=== PATIENT | female | born 1970 | race Caucasian/White ===

== ENCOUNTER 2016-10-02 13:22 | Outpatient (CLI) | payer MEDICAID | END 2016-10-02 13:23 | disposition home or self-care (01) | DX: R19.09 Other intra-abdominal and pelvic swelling, mass and lump (principal); C81.90 Hodgkin lymphoma, unspecified, unspecified site; Z97.5 Presence of (intrauterine) contraceptive device ==

== ENCOUNTER 2016-10-10 13:55 | Outpatient (CLI) | payer MEDICAID ==
[2016-10-10] MEDS ORDERED: BUFFERED LIDOCAINE 10 ML SYRINGE IU ONE (15:09)
== END 2016-10-10 13:56 | disposition home or self-care (01) ==
DX: R22.1 Localized swelling, mass and lump, neck (principal); R63.4 Abnormal weight loss

== ENCOUNTER 2016-10-29 07:54 | Day surgery (SDC) | payer MEDICAID ==
[~2016-10-29 07:54] MED LIST: ceFAZolin 2 GM/50 ML 50 ML IV ONE
[2016-10-29] MEDS ORDERED: LACTATED RINGERS 1,000 ML IV ONE (07:59)
[2016-10-29] MEDS ORDERED: fentaNYL 100 MCG/2 ML VIAL IVP ONE (10:00)
[2016-10-29] MEDS ORDERED: PROPOFOL 200 MG/20 ML VIAL IVP ONE (10:00)
[2016-10-29] MEDS ORDERED: ONDANSETRON 4 MG/2 ML VIAL IVP ONE (10:00)
[2016-10-29] MEDS ORDERED: MIDAZOLAM 2 MG/2 ML VIAL IVP ONE (10:00)
[2016-10-29] MEDS ORDERED: LIDOCAINE-MPF 2% 5 ML VIAL IM ONE (10:00)
[2016-10-29] MEDS ORDERED: BUPIVACAINE 0.5% PF 30 ML VIAL INFIL ONE ×2 (10:09)
[2016-10-29] MEDS ORDERED: oxyCOD/ACETAMIN 5 MG/325 MG TABLET PO ONE (11:20)
== END 2016-10-29 07:55 | disposition home or self-care (01) ==
DX: R59.0 Localized enlarged lymph nodes (principal); Z85.72 Personal history of non-Hodgkin lymphomas; Z87.891 Personal history of nicotine dependence; F41.8 Other specified anxiety disorders
CPT/HCPCS: 38510; 81025; 87640; A9270; J0690; J7120

== ENCOUNTER 2017-08-25 09:42 | Outpatient (CLI) | payer MEDICAID ==
[2017-08-25 12:29] LABS: BASOPHILS % (AUTO) 0.5 %; EOSINOPHILS # (AUTO) 0.1 10^3/uL (0.0-0.7); EOSINOPHILS % (AUTO) 2.2 %; HCT - HEMATOCRIT 39.8 % (37.0-47.0); HGB - HEMOGLOBIN 13.4 g/dL (12.0-16.0); LYMPHOCYTES % (AUTO) 43.4 %; MEAN CORPUSCULAR HEMOGLOBIN 29.1 pg (27.0-31.0); MEAN CORPUSCULAR HGB CONC 33.6 g/dL (32.0-36.0); MEAN CORPUSCULAR VOLUME 86.7 fL (81.0-99.0); MONOCYTES # (AUTO) 0.4 10^3/uL (0.0-1.0); NEUTROPHILS % (AUTO) 44.9 %; NUCLEATED RED BLOOD CELLS AUTO 0.1 /100WBC; RED BLOOD COUNT 4.59 10^6/uL (4.20-5.40); RED CELL DISTRIBUTION WIDTH 12.5 % (12.0-15.0); UNCORRECTED WHITE BLOOD COUNT 4.6 x10^3/uL; WHITE BLOOD COUNT 4.6 x10^3/uL (4.8-10.8)
[2017-08-25 12:44] LABS: BILIRUBIN,TOTAL 0.6 mg/dL (0.2-1.0); BUN - BLOOD UREA NITROGEN 16 mg/dL (6-20); CALCIUM 8.6 mg/dL (8.5-10.3); CARBON DIOXIDE - CO2 23 mmol/L (21-32); CHLORIDE 105 mmol/L (101-111); CHOL/HDL RATIO 4.8 (<4.4); CHOLESTEROL 202 mg/dL; CREATININE 0.6 mg/dL (0.4-1.0); GFR - MDRD 108 (>89); GLUCOSE 73 mg/dL (70-100); HDL CHOLESTEROL 42 mg/dL; LDL/HDL RATIO 3.2 (<4.4); POTASSIUM 3.8 mmol/L (3.5-5.0); SODIUM 136 mmol/L (135-145); TOTAL PROTEIN 7.9 g/dL (6.7-8.2); TRIGLYCERIDES 118 mg/dL; VLDL CHOLESTEROL 24 mg/dL
== END 2017-08-25 09:43 | disposition home or self-care (01) ==
LOC: LAB.N 09:42
PROVIDERS: ATTEND Nurse Practitioner Gerontology
DX: Z13.9 Encounter for screening, unspecified (principal)
CPT/HCPCS: 36415; 80053; 80061; 84443; 85025

== ENCOUNTER 2017-09-15 15:52 | Outpatient (CLI) | payer MEDICAID ==
--- NOTE | 2017-09-17 15:56 | Mammography Report ---
DATE OF SERVICE: 09/15/2017 DIGITAL SCREENING MAMMOGRAM: 09/15/2017 CLINICAL INDICATION: A 47-year-old, for baseline. TECHNIQUE: Routine CC and MLO projections were obtained of the breasts. FINDINGS: The breasts demonstrate heterogeneously dense fibroglandular parenchyma bilaterally. Punctate, typically benign calcifications are present. No suspicious masses, clustered microcalcifications, or regions of architectural distortion are identified. IMPRESSION: BENIGN FINDINGS. RECOMMENDATION: ROUTINE ANNUAL SCREENING UNLESS OTHERWISE CLINICALLY INDICATED. BIRADS CATEGORY 2-BENIGN FINDINGS. STANDARD QUALIFYING STATEMENTS: 1. This examination was reviewed with the aid of Computer-Aided Detection (CAD). 2. A negative or benign imaging report should not delay biopsy if clinically suspicious findings are present. Consider surgical consultation if warranted. More than 5% of cancers are not identified by imaging. 3. Dense breasts may obscure an underlying neoplasm. TD: 09/17/2017 16:54
== END 2017-09-15 15:53 | disposition home or self-care (01) ==
LOC: DI.N 15:52
PROVIDERS: ATTEND Nurse Practitioner Gerontology
DX: Z12.39 Encounter for other screening for malignant neoplasm of breast (principal)
CPT/HCPCS: 77067

== ENCOUNTER 2018-06-10 12:01 | Outpatient (CLI) | payer MEDICAID ==
--- NOTE | 2018-06-11 06:04 | XRAY Report ---
Reason: FOOT JOINT PAIN,LEFT Procedure Date: 06/10/2018 Accession Number: [id number] / [id number] Procedure: XR - Foot 3 View LT CPT Code: FULL RESULT: EXAM: LEFT FOOT RADIOGRAPHY EXAM DATE: 06/10/2018 12:27 PM. CLINICAL HISTORY: Foot joint pain, left. COMPARISON: None. TECHNIQUE: 3 views. FINDINGS: Bones: Plantar calcaneal spur. No fractures or bone lesions. Joints: Severe first MTP joint space loss. No subluxations. Soft Tissues: Normal. No soft tissue swelling. IMPRESSION: 1. No left foot fracture seen. 2. Severe first MTP joint space loss. RADIA
== END 2018-06-10 12:02 | disposition home or self-care (01) ==
LOC: DI 12:01
PROVIDERS: ATTEND Nurse Practitioner Gerontology
DX: M79.672 Pain in left foot (principal)

== ENCOUNTER 2019-06-10 14:01 | Emergency (ER) | payer MEDICAID ==
[2019-06-10 14:12] VITALS: BP 144/107
--- NOTE | 2019-06-10 14:39 | XRAY Report ---
Reason: injury Procedure Date: 06/10/2019 Accession Number: [id number] / [id number] Procedure: XR - Hand 3 View RT CPT Code: FULL RESULT: EXAM: RIGHT HAND RADIOGRAPHY EXAM DATE: 06/10/2019 02:24 PM. CLINICAL HISTORY: Injury. COMPARISON: FINGER(S) RT 05/04/2013 3:51 PM. TECHNIQUE: 3 views. FINDINGS: Bones: No fracture detected. Joints: Normal. No subluxations. Soft Tissues: Soft tissue swelling of the dorsum of the hand. No subcutaneous radiopaque foreign bodies. IMPRESSION: Soft tissue swelling of the dorsum of the hand. No fracture detected. RADIA
--- NOTE | 2019-06-10 14:55 | ED Physician Documentation ---
PD HPI UPPER EXT INJURY - Stated complaint Stated Complaint: RT PAIN - Chief complaint Chief Complaint: Trauma Ext - History obtained from History obtained from: Patient - History of Present Illness Location: Right (About 2 days ago she was doing some boxing training in the garage and acidentally punched a pole. She has persistent pain around the fourth metacarpal. 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 - Present Medications Home Medications: Ambulatory Orders Medication Instructions Recorded Confirmed Acetaminophen [Tylenol] 650 mg PO Q6H PRN 10/28/16 10/07/18 Ascorbic Acid [Vitamin C] 500 mg PO DAILY 10/28/16 10/07/18 Multivitamin [Multivitamins] 1 each PO DAILY 10/28/16 10/07/18 Cholecalciferol (Vitamin D3) 1 cap PO DAILY 10/08/17 10/07/18 [Vitamin D3] Glucosamine Sulfate 1 tab PO DAILY 10/08/17 10/07/18 Ibuprofen [Advil] 1 tab PO DAILY 10/08/17 10/07/18 oxyCODONE/ACET 5/325 [Percocet 5 1 tab PO PRN PRN 10/08/17 10/07/18 mg/325 mg] Hydrocodone/Acetaminophen 1 - 2 each PO Q6H PRN #14 tablet 06/10/19 [Hydrocodon-Acetaminophen 5-325] - Allergies Allergies/Adverse Reactions: Allergies Allergy/AdvReac Type Severity Reaction Status Date / Time No Known Drug Allergies Allergy Verified 06/10/19 14:08 - Social History Does the pt smoke?: Yes Smoking Status: Current every day smoker Does the pt drink ETOH?: Yes Does the pt have substance abuse?: No - Immunizations Immunizations are current?: Yes PD ED PE NORMAL - Vitals Vital signs reviewed: Yes - General General: Alert and oriented X 3, No acute distress - Extremities Extremities: Other (The dorsum of the right hand is swollen and is diffusely tender but can make a fist and has full range of motion. Normal neurovascular status at the tips of all the digits.) - Neuro Neuro: Alert and oriented X 3, Normal speech Results - Vitals Vitals: Vital Signs - 24 hr 06/10/19 14:09 Temperature 36.5 C Heart Rate 90 Respiratory 17 Rate Blood Pressure 144/107 H O2 Saturation 100 Oxygen O2 Source Room air - Rads (name of study) Three-view x-ray of the right hand Radiology: EMP read contemporaneously (No fracture) Departure - Departure Disposition: 01 Home, Self Care Clinical Impression: Contusion of right hand Qualifiers: Encounter type: initial encounter Qualified Code(s): S60.221A - Contusion of r ight hand, initial encounter Condition: Good Record reviewed to determine appropriate education?: Yes Instructions: ED Contusion Hand Prescriptions: Hydrocodone/Acetaminophen [Hydrocodon-Acetaminophen 5-325] 1 - 2 each PO Q6H PRN #14 tablet PRN Reason: pain Comments: Recheck with your doctor in a week if not improving, return for new worsening symptoms. Do not drink or drive while taking narcotic pain medication. Note that many narcotic pain relievers also contain Tylenol/acetaminophen. Please ensure that your total dose of acetaminophen from all sources does not exceed 3 g (3000 mg) per day. You may get constipated while on this medication. Take a stool softener such as Colace twice a day while you are on it. Also add an wbbv-vbd-[id number] laxative such as senna or MiraLAX on any day that you do not have a bowel movement. If you received a narcotic pain medication or sedative while in the emergency department, do not drive for the next 24 hours. Your blood pressure was elevated today on check into the emergency department. This does not mean that you have hypertension, it is a common phenomenon to come to the emergency department and have elevated blood pressure. I recommend that you see your primary care physician within the week to have it rechecked when you are feeling better. Discharge Date/Time: 06/10/19 14:59
== END 2019-06-10 14:59 | disposition home or self-care (01) ==
LOC: ED 14:01
DX: S60.221A Contusion of right hand, initial encounter (principal); W22.09XA Striking against other stationary object, initial encounter; Y93.71 Activity, boxing; Y92.008 Other place in unspecified non-institutional (private) residence as the place of occurrence of the external cause; R03.0 Elevated blood-pressure reading, without diagnosis of hypertension; F17.200 Nicotine dependence, unspecified, uncomplicated
CPT/HCPCS: 99283

== ENCOUNTER 2019-06-20 09:37 | Emergency (ER) | payer MEDICAID ==
[2019-06-20 09:51] VITALS: BP 159/99
--- NOTE | 2019-06-20 11:10 | XRAY Report ---
Reason: pain, injury Procedure Date: 06/20/2019 Accession Number: [id number] / [id number] Procedure: XR - Wrist 4 View RT CPT Code: FULL RESULT: EXAM: RIGHT WRIST RADIOGRAPHY EXAM DATE: 06/20/2019 10:35 AM. CLINICAL HISTORY: Pain, injury. COMPARISON: HAND 3 VIEW RT 06/10/2019 2:19 PM. TECHNIQUE: 4 views. FINDINGS: Bones: Normal. No fractures or bone lesions. Joints: Normal. No subluxations. Soft Tissues: Normal. No soft tissue swelling. IMPRESSION: Normal wrist radiography. RADIA
--- NOTE | 2019-06-20 11:41 | ED Physician Documentation ---
PD HPI UPPER EXT INJURY - Stated complaint Stated Complaint: RT HAND PX - Chief complaint Chief Complaint: Trauma Ext - History obtained from History obtained from: Patient - History of Present Illness Location: Right, Wrist, Hand Type of injury: Blunt / blow (hit a punching bag last week) Where injury occurred: Home Timing - onset: How many weeks ago (1) Timing - duration: Weeks (1) Timing - details: Abrupt onset, Still present Severity Comments: moderate Improved by: Rest Worsened by: Moving, Palpating Associated symptoms: Swelling. No: Weakness, Numbness, Tingling Contributing factors: No: Anticoagulated, Prior ortho surgery, Prosthetic joint, Work related Similar symptoms before: Diagnosis (wrist and hand sprain), Work up / diagnostics (had a negative hand xray last week) Recently seen: Emergency Dept - Treatment prior to arrival Treatment prior to arrival: narcotic medication and nsaids Review of Systems Ten Systems: 10 systems reviewed and negative Constitutional: denies: Fever, Chills Skin: denies: Rash Musculoskeletal: reports: Extremity pain, Joint pain, Extremity swelling Neurologic: denies: Focal weakness, Numbness Immunocompromised: reports: Reviewed and negative PD PAST MEDICAL HISTORY - Past Medical History Past Medical History: Yes Cardiovascular: None Respiratory: None Endocrine/Autoimmune: None GI: None : None HEENT: None Psych: Depression, Anxiety Musculoskeletal: Osteoarthritis Derm: None - Past Surgical History General: Other 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 - Present Medications Home Medications: Ambulatory Orders Medication Instructions Recorded Confirmed Acetaminophen [Tylenol] 650 mg PO Q6H PRN 10/28/16 10/07/18 Ascorbic Acid [Vitamin C] 500 mg PO DAILY 10/28/16 10/07/18 Multivitamin [Multivitamins] 1 each PO DAILY 10/28/16 10/07/18 Cholecalciferol (Vitamin D3) 1 cap PO DAILY 10/08/17 10/07/18 [Vitamin D3] Glucosamine Sulfate 1 tab PO DAILY 10/08/17 10/07/18 Ibuprofen [Advil] 1 tab PO DAILY 10/08/17 10/07/18 oxyCODONE/ACET 5/325 [Percocet 5 1 tab PO PRN PRN 10/08/17 10/07/18 mg/325 mg] Hydrocodone/Acetaminophen 1 - 2 each PO Q6H PRN #14 tablet 06/10/19 [Hydrocodon-Acetaminophen 5-325] - Allergies Allergies/Adverse Reactions: Allergies Allergy/AdvReac Type Severity Reaction Status Date / Time No Known Drug Allergies Allergy Verified 06/20/19 09:47 - Social History Does the pt smoke?: Yes Smoking Status: Current every day smoker Does the pt drink ETOH?: Yes Does the pt have substance abuse?: No - Immunizations Immunizations are current?: Yes Results - Vitals Vitals: Vital Signs - 24 hr 06/20/19 09:47 Temperature 36.9 C Heart Rate 109 H Respiratory 16 Rate Blood Pressure 159/99 H O2 Saturation 100 Oxygen O2 Source Room air - Rads (name of study) R wrist xray Radiology: Final report received (negative ), EMP read contemporaneously, See rad report PD MEDICAL DECISION MAKING - ED course Complexity details: reviewed old records, reviewed results, re-evaluated patient, considered differential, d/w patient ED course: ddx- wrist sprain, hand sprain, fracture, dislocation, contusion 48 y/o F with repeat visit after last week having an xray of her hand for pain after hitting a punching bag. Pain is over the Right lateral hand and wrist. Pt has full ROM. She is swollen over the R lateral hand but negative xray last week and no new injury and able to visualize metacarpals on xray and area of pain and swelling and there is no fracture again today, her wrist exam is consistent with a sprain and again has a negative xray. pt given a wrist splint for comfort and advised RICE, NSAIDs and outpt f/u with her PCP Departure - Departure Disposition: 01 Home, Self Care Clinical Impression: Hand sprain Qualifiers: Encounter type: subsequent encounter Laterality: right Qualified Code(s): S63.91XD - Sprain of unspecified part of right wrist and hand, subsequent encounter Contusion, hand Qualifiers: Encounter type: subsequent encounter Laterality: right Qualified Code(s): S60.221D - Contusion of right hand, subsequent encounter Condition: Stable Record reviewed to determine appropriate education?: Yes Instructions: ED Sprain Hand Follow-Up: Noe Newman PA-C [Primary Care Provider] - Within 1 week (recheck your symptoms if they persist ) Comments: Xrays of your wrist today and your hand from 06/10 were both normal except for soft tissue swelling representing a contusion (bruise). Use the wrist splint as well as ibuprofen three times a day and ice your hand to decrease pain and swelling. Discharge Date/Time: 06/20/19 11:50
== END 2019-06-20 11:50 | disposition home or self-care (01) ==
LOC: ED 09:37
DX: S63.91XA Sprain of unspecified part of right wrist and hand, initial encounter (principal); S60.221A Contusion of right hand, initial encounter; W21.89XA Striking against or struck by other sports equipment, initial encounter; Y92.009 Unspecified place in unspecified non-institutional (private) residence as the place of occurrence of the external cause; F17.200 Nicotine dependence, unspecified, uncomplicated
CPT/HCPCS: 99282; 99283

== ENCOUNTER 2020-04-03 07:00 | Outpatient (CLI) | payer MEDICAID ==
[2020-04-05 19:40] LABS: CANDIDA GROUP DNA NEGATIVE (NEGATIVE); CANDIDA KRUSEI DNA NEGATIVE (NEGATIVE); TRICHOMONAS VAGINALIS DNA POSITIVE (NEGATIVE)
== END 2020-04-03 23:59 | disposition home or self-care (01) ==
LOC: LAB.R 07:00
PROVIDERS: ATTEND Obstetrics & Gynecology
DX: L29.8 Other pruritus (principal)
CPT/HCPCS: 87661; 87801

== ENCOUNTER 2020-10-18 07:47 | Outpatient (CLI) | payer MEDICAID | END 2020-10-18 07:48 | disposition home or self-care (01) | LOC: DI 07:47 | PROVIDERS: ATTEND Internal Medicine | DX: Z85.71 Personal history of Hodgkin lymphoma (principal) | CPT/HCPCS: 93306 ==

== ENCOUNTER 2020-12-25 16:56 | Outpatient (CLI) | payer MEDICAID ==
--- NOTE | 2020-12-26 17:19 | XRAY Report ---
PROCEDURE: Hand 3 View RT INDICATIONS: LOCALIZED SWELLING ON R HAND TECHNIQUE: 3 views of the hand(s) acquired. COMPARISON: 06/10/2019 comparison. FINDINGS: Bones: No acute fractures or dislocations. No suspicious bony lesions. There is a mildly angulated healing mid shaft fracture involving the fifth metacarpal diaphysis. Soft tissues: No suspicious soft tissue calcifications. IMPRESSION: Mildly angulated healing fracture with prominent callus bridging the fracture plane at the mid shaft of the fifth metacarpal. Reviewed by: Juan Carr MD on 12/26/2020 5:18 PM PDT Approved by: Juan Carr MD on 12/26/2020 5:18 PM PDT Station ID: [id number]
== END 2020-12-25 16:57 | disposition home or self-care (01) ==
LOC: DI.N 16:56
PROVIDERS: ATTEND Nurse Practitioner Family
DX: S62.326D Displaced fracture of shaft of fifth metacarpal bone, right hand, subsequent encounter for fracture with routine healing (principal)

== ENCOUNTER 2021-01-05 12:18 | Outpatient (CLI) | payer MEDICAID ==
--- NOTE | 2021-01-05 15:07 | XRAY Report ---
PROCEDURE: Hand 3 View RT INDICATIONS: FRACTURE AT WRIST AND HAND LEVEL, RIGHT TECHNIQUE: 3 views of the hand(s) acquired. COMPARISON: 12/25/2020 FINDINGS: Unchanged alignment of the fifth metacarpal. There is minimal if any interval healing callus formatio n. Soft tissues: No suspicious soft tissue calcifications. IMPRESSION: Unchanged alignment Reviewed by: Mele Madden MD on 01/05/2021 3:05 PM PDT Approved by: Mele Madden MD on 01/05/2021 3:05 PM PDT Station ID: [id number]
== END 2021-01-05 23:59 | disposition home or self-care (01) ==
LOC: DI.N 12:18
PROVIDERS: ATTEND Orthopaedic Surgery
DX: S62.306D Unspecified fracture of fifth metacarpal bone, right hand, subsequent encounter for fracture with routine healing (principal)

== ENCOUNTER 2021-05-10 08:00 | Outpatient (CLI) | payer MEDICAID ==
[2021-05-10 17:57] LABS: BASOPHILS # (AUTO) 0.1 10^3/uL (0.0-0.1); BASOPHILS % (AUTO) 0.7 %; EOSINOPHILS # (AUTO) 0.1 10^3/uL (0.0-0.7); EOSINOPHILS % (AUTO) 1.3 %; HCT - HEMATOCRIT 46.3 % (37.0-47.0); HGB - HEMOGLOBIN 14.2 g/dL (12.0-16.0); LYMPHOCYTES # (AUTO) 2.8 10^3/uL (1.5-3.5); LYMPHOCYTES % (AUTO) 39.4 %; MEAN CORPUSCULAR HGB CONC 30.7 g/dL (32.0-36.0); MEAN CORPUSCULAR VOLUME 94.5 fL (81.0-99.0); MEAN PLATELET VOLUME 10.3 fL (7.9-10.8); MONOCYTES # (AUTO) 0.7 10^3/uL (0.0-1.0); MONOCYTES % (AUTO) 9.7 %; NEUTROPHILS # (AUTO) 3.5 10^3/uL (1.5-6.6); NEUTROPHILS % (AUTO) 48.6 %; PLT - PLATELET COUNT 319 10^3/uL (130-450); RED CELL DISTRIBUTION WIDTH 12.6 % (12.0-15.0); WHITE BLOOD COUNT 7.1 x10^3/uL (4.8-10.8)
[2021-05-10 18:00] LABS: GLUCOSE, URINE (UA) NEGATIVE (NEGATIVE); KETONES,URINE (UA) NEGATIVE (NEGATIVE); LEUKOCYTE ESTERASE, URINE NEGATIVE (NEGATIVE); NITRITE,URINE NEGATIVE (NEGATIVE); OCCULT BLOOD,URINE NEGATIVE (NEGATIVE); PROTEIN,URINE NEGATIVE (NEGATIVE); UROBILINOGEN,URINE 0.2 (NORMAL) E.U./dL (NORMAL)
[2021-05-10 18:14] LABS: BACTERIA,URINE Rare /HPF (None Seen); BILIRUBIN,URINE MODERATE (NEGATIVE); CLARITY,URINE CLEAR (CLEAR); ICTOTEST,URINE POSITIVE; RBC,URINE 0-5 /HPF (0-5); SQUAMOUS EPITHELIAL CELL,UR FEW Squamous (<= Few); WBC,URINE 0-3 /HPF (0-5)
[2021-05-10 18:18] LABS: ALBUMIN 4.2 g/dL (3.2-5.5); ALBUMIN/GLOBULIN RATIO 1.2 (1.0-2.2); ALKALINE PHOSPHATASE 56 IU/L (42-121); ALT ALANINE AMINOTRANSFERASE 22 IU/L (10-60); AST ASPARTATE AMINOTRANSFERASE 20 IU/L (10-42); BILIRUBIN,TOTAL 0.5 mg/dL (0.2-1.0); BUN - BLOOD UREA NITROGEN 11 mg/dL (6-20); CALCIUM 8.9 mg/dL (8.5-10.3); CARBON DIOXIDE - CO2 26 mmol/L (21-32); CHLORIDE 101 mmol/L (101-111); CHOL/HDL RATIO 5.1 (<4.4); CHOLESTEROL 234 mg/dL; CREATININE 0.7 mg/dL (0.4-1.0); GFR - MDRD 89 (>89); GLUCOSE 92 mg/dL (70-100); HDL CHOLESTEROL 46 mg/dL; LDL CHOLESTEROL,CALCULATED 144 mg/dL; LDL/HDL RATIO 3.1 (<4.4); POTASSIUM 4.5 mmol/L (3.5-5.0); SODIUM 136 mmol/L (135-145); TOTAL PROTEIN 7.8 g/dL (6.7-8.2); TRIGLYCERIDES 219 mg/dL; VLDL CHOLESTEROL 44 mg/dL
[2021-05-10 18:32] LABS: THYROID STIMULATING HORMONE 2.53 uIU/mL (0.34-5.60)
== END 2021-05-10 23:59 | disposition home or self-care (01) ==
LOC: LAB.WCP 08:00
PROVIDERS: ATTEND Nurse Practitioner
DX: R53.83 Other fatigue (principal); Z13.220 Encounter for screening for lipoid disorders
CPT/HCPCS: 36415; 80053; 80061; 81001; 82607; 83721; 84443; 85025; 87086

== ENCOUNTER 2021-06-13 10:36 | Outpatient (CLI) | payer MEDICAID ==
--- NOTE | 2021-06-13 11:24 | XRAY Report ---
PROCEDURE: Chest 2 View X-Ray INDICATIONS: CORONAVIRUS INFECTION TECHNIQUE: 2 view(s) of the chest. COMPARISON: None. FINDINGS: Surgical changes and devices: None. Lungs and pleura: No pleural effusions or pneumothorax. Lungs are clear. Mediastinum: Mediastinal contours are normal. Heart size is normal. Bones and chest wall: No suspicious bony abnormalities. Soft tissues appear unremarkable. IMPRESSION: No acute cardiopulmonary disease process. Reviewed by: Jennifer Casiano MD, PhD on 06/13/2021 11:23 AM PDT Approved by: Jennifer Casiano MD, PhD on 06/13/2021 11:23 AM PDT Station ID: [id number]
== END 2021-06-13 23:59 | disposition home or self-care (01) ==
LOC: DI.N 10:36
PROVIDERS: ATTEND Nurse Practitioner
DX: U07.1 COVID-19 (principal)

== ENCOUNTER 2021-06-26 08:00 | Outpatient (CLI) | payer MEDICAID | END 2021-06-26 23:59 | disposition home or self-care (01) | LOC: LAB.N 08:00 | PROVIDERS: ATTEND Family Medicine | DX: R05.9 Cough, unspecified (principal); Z20.822 Contact with and (suspected) exposure to COVID-19 ==

== ENCOUNTER 2021-06-26 13:26 | Outpatient (CLI) | payer MEDICAID ==
--- NOTE | 2021-06-27 09:39 | XRAY Report ---
PROCEDURE: Chest 2 View X-Ray INDICATIONS: COUGH TECHNIQUE: 2 views of the chest. COMPARISON: 06/13/2021. FINDINGS: Surgical changes and devices: None. Lungs and pleura: No pleural effusions or pneumothorax. Lungs are clear. Mediastinum: Mediastinal contours are normal. Heart size is normal. Bones and chest wall: No suspicious bony abnormalities. Soft tissues appear unremarkable. IMPRESSION: 1. No acute cardiopulmonary disease. Reviewed by: Jarad Hernandez MD on 06/27/2021 9:38 AM PDT Approved by: Jarad Hernandez MD on 06/27/2021 9:38 AM PDT Station ID: [id number]
== END 2021-06-26 23:59 ==
LOC: DI.N 13:26
PROVIDERS: ATTEND Family Medicine
DX: R05.9 Cough, unspecified (principal)

== ENCOUNTER 2021-12-14 08:59 | Outpatient (CLI) | payer MEDICAID ==
[2021-12-14 09:19] LABS: BASOPHILS % (AUTO) 0.5 %; EOSINOPHILS # (AUTO) 0.1 10^3/uL (0.0-0.7); EOSINOPHILS % (AUTO) 1.7 %; HCT - HEMATOCRIT 45.3 % (37.0-47.0); HGB - HEMOGLOBIN 14.7 g/dL (12.0-16.0); LYMPHOCYTES # (AUTO) 2.5 10^3/uL (1.5-3.5); LYMPHOCYTES % (AUTO) 41.8 %; MEAN CORPUSCULAR HGB CONC 32.5 g/dL (32.0-36.0); MEAN CORPUSCULAR VOLUME 89.3 fL (81.0-99.0); MEAN PLATELET VOLUME 9.3 fL (7.9-10.8); MONOCYTES # (AUTO) 0.6 10^3/uL (0.0-1.0); MONOCYTES % (AUTO) 10.3 %; NEUTROPHILS # (AUTO) 2.7 10^3/uL (1.5-6.6); NEUTROPHILS % (AUTO) 45.4 %; PLT - PLATELET COUNT 227 10^3/uL (130-450); RED BLOOD COUNT 5.07 10^6/uL (4.20-5.40); RED CELL DISTRIBUTION WIDTH 12.1 % (12.0-15.0); WHITE BLOOD COUNT 5.9 x10^3/uL (4.8-10.8)
[2021-12-14 09:28] LABS: ALBUMIN 4.4 g/dL (3.2-5.5); ALBUMIN/GLOBULIN RATIO 1.3 (1.0-2.2); BILIRUBIN,TOTAL 0.8 mg/dL (0.2-1.0); CALCIUM 8.9 mg/dL (8.5-10.3); CREATININE 0.8 mg/dL (0.4-1.0); TOTAL PROTEIN 7.7 g/dL (6.7-8.2)
== END 2021-12-14 09:00 | disposition home or self-care (01) ==
LOC: LAB 08:59
PROVIDERS: ATTEND Physician Assistant
DX: Z13.9 Encounter for screening, unspecified (principal); N63.0 Unspecified lump in unspecified breast; Z85.71 Personal history of Hodgkin lymphoma
CPT/HCPCS: 36415; 80053; 85025

== ENCOUNTER 2021-12-22 08:43 | Outpatient (CLI) | payer MEDICAID ==
[2021-12-22] MEDS ORDERED: IOVERSOL 320 100 ML VIAL IVP ONE ×2 (08:58→09:18)
--- NOTE | 2021-12-22 11:04 | CT Report ---
PROCEDURE: SOFT TISSUE NECK W INDICATIONS: CERVICAL LYMPHADENOPATHY CONTRAST: IV CONTRAST: Optiray 320 ml: 100 PO CONTRAST: *NO PO CONTRAST TECHNIQUE: After the administration of intravenous contrast, 3.0 mm axial sections acquired from the sella to th e aortic arch. Additional oblique axial 3.0 mm sections acquired through the pharynx. 3 mm thick co kalyani reformats were generated. For radiation dose reduction, the following was used: automated exp osure control, adjustment of mA and/or kV according to patient size. COMPARISON: Correlation is made with the report only from prior soft tissue neck CT, 04/10/2010 FINDINGS: Image quality: Excellent. Lymph nodes: Prominent cervical lymph nodes are seen, yet without frankly enlarged cervical lymph no kennedy. The largest solitary lymph node is seen on the right at level 2A measuring 12 x 7 mm. Vessels: Visualized vasculature appears patent. Neck spaces: The oropharynx, nasopharynx, and pharynx demonstrate no mucosal lesions. The vocal cor ds, false vocal cords, pyriform sinuses, epiglottis, vallecula, and tongue base all appear normal. E xtramucosal spaces appear unremarkable. Glands: The parotid and submandibular glands appear normal. The thyroid is normal in size and there are no incidental findings. Miscellaneous: Visualized brain and orbits appear normal. Lung apices appear clear. Superficial so ft tissues appear normal. Dense calcification can be seen within the anterior left mediastinum, as on series 3 image 128. Bones: No suspicious bony lesions. Visualized sinuses and mastoids appear unremarkable. Focal dege nerative change can be seen at the C5-C6 level. IMPRESSION: No enlarged cervical lymph nodes can be seen, although borderline prominent lymph nodes are seen on b oth sides. Dense calcification can be seen within the anterior mediastinum, which is similar to the prior 2009 r eport. Reviewed by: Abel Boyd MD on 12/22/2021 10:02 AM MALIK Approved by: Abel Boyd MD on 12/22/2021 10:02 AM MALIK Station ID: [id number]
== END 2021-12-22 08:44 | disposition home or self-care (01) ==
LOC: DI 08:43
PROVIDERS: ATTEND Physician Assistant
DX: R59.0 Localized enlarged lymph nodes (principal); R93.7 Abnormal findings on diagnostic imaging of other parts of musculoskeletal system
CPT/HCPCS: 70491; Q9967

== ENCOUNTER 2022-03-01 10:03 | Day surgery (SDC) | payer MEDICAID ==
[~2022-03-01 10:03] MED LIST changes: +BUPIVACAINE 0.25% PF 10 ML VIAL ONE; +LIDOCAINE 2%-EPI 1:100000 20 ML MDV ONE; -ceFAZolin 2 GM/50 ML 50 ML IV ONE
[2022-03-01] MEDS ORDERED: LACTATED RINGERS 1,000 ML IV ONE ×2 (10:27→12:52)
[2022-03-01] MEDS ORDERED: LIDOCAINE-MPF 2% 5 ML VIAL ONE (10:52)
[2022-03-01] MEDS ORDERED: PROPOFOL 200 MG/20 ML VIAL IVP ONE (10:52)
[2022-03-01] MEDS ORDERED: MAGNESIUM SULFATE 1 GM/2 ML VIAL ONE (10:52)
[2022-03-01] MEDS ORDERED: ONDANSETRON 4 MG/2 ML VIAL ONE ×2 (10:53→13:20)
[2022-03-01] MEDS ORDERED: DEXAMETHASONE 4 MG/ML VIAL ONE (10:53)
[2022-03-01] MEDS ORDERED: fentaNYL 100 MCG/2 ML VIAL ONE (10:53)
[2022-03-01] MEDS ORDERED: MIDAZOLAM 2 MG/2 ML VIAL ONE (10:53)
--- NOTE | 2022-03-01 10:53 | ANESTHESIA ---
Pre-Anesthesia VS, & Labs - Diagnosis breast cancer - Procedure Portacath placement Vital Signs: Temp Pulse Resp BP Pulse Ox 36.2 C L 90 22 126/95 H 100 03/01/22 10:21 03/01/22 10:21 03/01/22 10:21 03/01/22 10:21 03/01/22 10:21 Height: 5 ft 7.5 in Weight (kg): 85 kg Body Mass Index: 28.9 BMI Classification: Overweight - NPO >8 hours - Is Patient ?: No Home Medications and Allergies Home Medications: Ambulatory Orders Cholecalciferol (Vitamin D3) [Vitamin D3] 50 mcg PO DAILY 02/22/22 Acetaminophen [Tylenol] 650 mg PO Q6H PRN 10/28/16 Ascorbic Acid [Vitamin C] 500 mg PO DAILY 10/28/16 Multivitamin [Multivitamins] 1 each PO DAILY 10/28/16 Buspirone HCl 30 mg PO BID 10/06/19 DULoxetine [Cymbalta] 60 mg PO BID 02/20/22 Cholecalciferol (Vitamin D3) [Vitamin D3] 50 mcg PO DAILY 02/22/22 Allergies/Adverse Reactions: Allergies Allergy/AdvReac Type Severity Reaction Status Date / Time No Known Drug Allergies Allergy Verified 02/20/22 14:20 Anes History & Medical History - Anesthetic History Anesthesia Complications: reports: No previous complications Family history of Anesthesia Complications: Denies Family history of Malignant Hyperthermia: Denies - Medical History Cardiovascular: reports: None Pulmonary: reports: None Gastrointestinal: reports: None Urinary: reports: None Musculoskeletal: reports: Osteoarthritis Endocrine/Autoimmune: reports: None Blood Disorders: reports: None Skin: reports: None Smoking Status: Former smoker (quit 3 years ago, smoked a pack a day. Uses nicotine gummy currently) Psychosocial: reports: Depression, Anxiety - Surgical History General: reports: Other (left neck node removal, portacath on the right side) Gynecologic: reports: section Orthopedic: reports: Arthroscopic surgery Exam General: Alert, Oriented x3 Dental: WNL Mouth Opening: Greater than 4 Fingerbreadths Neck Mobility: Normal Mallampati classification: II Thyromental Distance: 4-6 cm Respiratory: Lungs clear Cardiovascular: Regular rate, No murmurs Mental/Cognitive Status: Alert/Oriented X3, Normal for patient Cognitive Status: Within normal limits Plan Anesthesia Type: General Consent for Procedure(s) Verified and Reviewed: Yes Code Status: Attempt Resuscitation ASA classification: 3-Severe systemic disease Is this case an emergency?: No
[2022-03-01] MEDS ORDERED: ACETAMINOPHEN 1,000 MG/100 ML 100 ML IV ONE (10:56)
--- NOTE | 2022-03-01 11:14 | HISTORY & PHYSICAL EXAMINATION ---
Chief Complaint - Chief Complaint Chief Complaint: need for chemotherapy History of Present Illness - History Obtained From Records Reviewed: yes History obtained from: pt Exam Limitations: none - History of Present Illness HPI Comment/Other: left breast mass and lymphadenopathy. 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 Meds/Allgy - Home Medications Home Medications: Ambulatory Orders Medication Instructions Recorded Confirmed Acetaminophen [Tylenol] 650 mg PO Q6H PRN 10/28/16 02/22/22 Ascorbic Acid [Vitamin C] 500 mg PO DAILY 10/28/16 02/22/22 Multivitamin [Multivitamins] 1 each PO DAILY 10/28/16 02/22/22 Buspirone HCl 30 mg PO BID 10/06/19 03/01/22 DULoxetine [Cymbalta] 60 mg PO BID 02/20/22 03/01/22 Cholecalciferol (Vitamin D3) 50 mcg PO DAILY 02/22/22 02/22/22 [Vitamin D3] - Allergies Allergies/Adverse Reactions: Allergies Allergy/AdvReac Type Severity Reaction Status Date / Time No Known Drug Allergies Allergy Verified 02/20/22 14:20 Review of Systems - Other Findings Other Findings: 10 pt ros as above otherwise unremarkable Exam - Vital Signs Reviewed Vital Signs: Yes Vital Signs: Vital Signs x48h Temp Pulse Resp BP Pulse Ox 03/01/22 10:21 36.2 C L 90 22 126/95 H 100 - Physical Exam General Appearance: positive: No acute distress, Alert Eyes Bilateral: positive: PERRL, EOMI, No scleral icterus ENT: positive: No signs of dehydration Neck: positive: No JVD, Trachea midline Respiratory: positive: No respiratory distress, Breath sounds nml Cardiovascular: positive: Regular rate & rhythm Abdomen: positive: Non-tender, No distention Neurologic/Psychiatric: positive: Oriented x3 Conclusion/Plan - Problem List (1) Metastatic cancer Conclusion/Plan: plan port placement. parq held and consent obtained
[2022-03-01] MEDS ORDERED: ceFAZolin 1 GM VIAL ONE (12:18)
[2022-03-01] MEDS ORDERED: SODIUM CHLORIDE 0.9% 100 ML BAG IV ONE (12:26)
[2022-03-01] MEDS ORDERED: LIDOCAINE 2%-EPI 1:100000 20 ML MDV SUBQ ONE ×2 (12:27)
[2022-03-01] MEDS ORDERED: BUPIVACAINE 0.25% PF 30 ML VIAL SUBQ ONE ×2 (12:27)
[2022-03-01] MEDS ORDERED: HYDROmorphone 0.5 MG/0.5 ML SYRINGE IVP PRN ×2 (12:58→13:10)
[2022-03-01] MEDS ORDERED: HYDROcod/ACETAM 5/325 MG TABLET PO PRN (12:58)
[2022-03-01] MEDS ORDERED: ONDANSETRON 4 MG/2 ML VIAL IVP PRN ×2 (12:58→13:10)
--- NOTE | 2022-03-01 13:04 | OPERATIVE REPORT ---
Operative Report - General Procedure Date: 03/01/22 Planned Procedure: right subclavian powerport placement Pre-Op Diagnosis: metastatic cancer Procedure Performed: right subclavian powerport placement fluoroscopic guidance Post Op Diagnosis: breast cancer - Procedure Note Primary Surgeon: karen goodwin Anesthesia Technique: General LMA, Local Estimated Blood Loss (mL): 2 Drain/Tube Type: Other (none) Indications: need for chemotherapy Findings: tip at junction of svc and atrium. good flush and flow Complications: none - Other Other Information/Narrative: The patient was properly identified brought to the operating room and placed in supine position. Laryngeal mask anesthesia was induced. A towel roll was placed under the upper back. The patient was prepped and draped in a sterile fashion and given preoperative antibiotics. Local anesthetic was given. The right subclavian vein was easily accessed first pass with a needle. Guide wire placed and position confirmed. A subcutaneous pocket on the left upper chest was created measuring approximately 2-1/2 cm. Portacatheter tubing was then placed subcutaneous up to the venous access point. The portacatheter tubing was then easily placed with the use of a dilator peel-away sheath. The tubing was aspirated and flushed with saline. Under fluoroscopic guidance the tubing was pulled back to the junction of the atrium and the superior vena cava. The portacatheter aspirated and flushed easily assuring good position. The portacatheter was then cut to size and further assembled. The port was secured to subcutaneous tissue with 2 interrupted 4-0 Prolene sutures. The port again was aspirated and flushed now with heparin. Buried interrupted subdermal 3-0 Vicryl sutures were then placed. Skin was closed with buried interrupted and running 4-0 Monocryl subcuticular suture. Dressing was applied. The patient tolerated the procedure well was awakened and brought to recovery in good condition.
[2022-03-01] MEDS ORDERED: ATROPINE ABBOJECT 1 MG/10 ML SYRINGE IVP PRN (13:10)
[2022-03-01] MEDS ORDERED: NALOXONE 0.4 MG/ML VIAL IVP PRN (13:10)
[2022-03-01] MEDS ORDERED: MORPHINE 2 MG/ML CARPUJECT IVP PRN (13:10)
[2022-03-01] MEDS ORDERED: ePHEDrine 50 MG/ML VIAL IVP PRN (13:10)
[2022-03-01] MEDS ORDERED: fentaNYL 100 MCG/2 ML VIAL IVP PRN (13:10)
[2022-03-01] MEDS ORDERED: LACTATED RINGERS 1,000 ML IV SCH (14:00)
--- NOTE | 2022-03-01 14:27 | XRAY Report ---
PROCEDURE: OR Port-A-Cath INDICATIONS: PORT PLACEMENT TECHNIQUE: Intraoperative fluoroscopic images are provided for evaluation. COMPARISON: None. FINDINGS: Intraoperative images demonstrate numerous overlying wires. There is an incompletely presumed cathete r and wire overlying the subclavian course projecting along the expected course of the SVC. Second im age demonstrates appearance of catheter with distal tip appearing to project over the proximal SVC. M ultiple overlying leads and wires obscure evaluation. IMPRESSION: Port placement as above. Reviewed by: Claire Klein MD on 03/01/2022 2:26 PM PDT Approved by: Claire Klein MD on 03/01/2022 2:26 PM PDT Station ID: [id number]
[2022-03-01 15:03] VITALS: BP 132/89
--- NOTE | 2022-03-01 15:29 | ANESTHESIA POST OP EVALUATION ---
Anesthesia Post Eval - Post Anesthesia Eval Vitals: Last Vital Signs Temp 36.7 C 03/01/22 13:26 Pulse 66 03/01/22 14:45 Resp 16 03/01/22 14:45 BP 132/89 H 03/01/22 14:45 Pulse Ox 99 03/01/22 14:45 CV Function Including HR & BP: Stable Pain Control: Satisfactory Nausea & Vomiting: Negative Mental Status: Baseline Respiratory Status: Airway Patent Hydration Status: Satisfactory Anesthesia Complications: None
== END 2022-03-01 10:04 | disposition home or self-care (01) ==
LOC: SDS 10:03
PROVIDERS: ATTEND Surgery
DX: C50.912 Malignant neoplasm of unspecified site of left female breast (principal); Z87.891 Personal history of nicotine dependence; F41.9 Anxiety disorder, unspecified
CPT/HCPCS: 36561; C1788; J0131; J7120

== ENCOUNTER 2022-08-03 23:50 | Emergency (ER) | payer MEDICAID ==
--- NOTE | 2022-08-04 00:58 | ED Physician Documentation ---
PD HPI SKIN - Stated complaint Stated Complaint: INFECTED FINGERS - Chief complaint Chief Complaint: Wound - History obtained from History obtained from: Patient - History of Present Illness Timing - onset: How many weeks ago (2-3) Timing - duration: Minutes Location: RUE, E Quality / character: Painful, Draining Associated symptoms: No: Fever Contributing factors: Unknown - Additional information Additional information: c/o bilateral fourth digit redness, swelling, pain, and drainage around and from underneath the fingernails. The left fourth digit symptoms began 3 weeks ago, right 2 weeks ago. No injury. No apparent inciting event. Denies having similar symptoms before. 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 HEENT: Chronic vision loss Psych: Depression, Anxiety Musculoskeletal: Osteoarthritis Derm: None Other Past Medical History: Peripheral Neuropathy - Past Surgical History Past Surgical History: Yes General: Other Ortho: Arthroscopic surgery /PAINT STOCKMAN: section - Present Medications Home Medications: Ambulatory Orders Medication Instructions Recorded Confirmed Acetaminophen [Tylenol] 650 mg PO Q6H PRN 10/28/16 08/04/22 Ascorbic Acid [Vitamin C] 500 mg PO DAILY 10/28/16 08/04/22 Multivitamin [Multivitamins] 1 each PO DAILY 10/28/16 08/04/22 Buspirone HCl 30 mg PO BID 10/06/19 08/04/22 DULoxetine [Cymbalta] 60 mg PO BID 02/20/22 08/04/22 Cholecalciferol (Vitamin D3) 50 mcg PO DAILY 02/22/22 08/04/22 [Vitamin D3] Gabapentin [Neurontin] 200 mg PO TID 07/24/22 08/04/22 Alprazolam [Xanax] 0.25 mg PO DAILY PRN 08/04/22 08/04/22 Doxycycline [Vibramycin] 100 mg PO BID #14 tablet 08/04/22 - Allergies Allergies/Adverse Reactions: Allergies Allergy/AdvReac Type Severity Reaction Status Date / Time No Known Drug Allergies Allergy Verified 08/04/22 00:00 - Social History Does the pt smoke?: Yes Smoking Status: Current every day smoker Does the pt drink ETOH?: Yes Does the pt have substance abuse?: No - Immunizations Immunizations are current?: Yes - POLST Patient has POLST: No PD ED PE NORMAL - Vitals Vital signs reviewed: Yes - General General: Alert and oriented X 3, No acute distress, Well developed/nourished PD ED PE EXPANDED - Extremities Extremities: Other (bilateral fourth fingers: erythema and swelling surrounding the fingernails (worst at eponychium at proximal nail fold, but also along medial and lateral nail folds). scant discharge from underneath the nails of the fourth fingers. ROM intact ) Results - Vitals Vitals: Oxygen O2 Source Room air PD MEDICAL DECISION MAKING - ED course Complexity details: considered differential, d/w patient Departure - Departure Disposition: 01 Home, Self Care Clinical Impression: Paronychia Condition: Good Instructions: ED Fingernail Infec Follow-Up: Xochilt Agudelo ARNP [Primary Care Provider] - (3-5 days if not improving ) Prescriptions: Doxycycline [Vibramycin] 100 mg PO BID #14 tablet Comments: A prescription for the antibiotic (doxycycline) has been electronically submitted to [facility] pharmacy in [place]. Discharge Date/Time: 08/04/22 01:24
[2022-08-04] MEDS ORDERED: DOXYCYCLINE 100 MG TABLET PO STA (01:10)
[2022-08-04 01:21] VITALS: BP 138/99
== END 2022-08-04 01:24 | disposition home or self-care (01) ==
LOC: ED 23:50
DX: L03.012 Cellulitis of left finger (principal); L03.011 Cellulitis of right finger; F17.200 Nicotine dependence, unspecified, uncomplicated
CPT/HCPCS: 99282; A9270

== ENCOUNTER 2023-01-07 10:03 | Outpatient (CLI) | payer MEDICAID ==
--- NOTE | 2023-01-08 14:44 | Ultrasound Report ---
ULTRASOUND OF LEFT AXILLA- POST MASTECTOMY: 01/07/2023 CLINICAL: Left axillary lump and pain. No prior exams were available for comparison. Color flow and real-time ultrasound of the left axilla were performed on the areas of interest. Gra y scale images of the real-time examination were reviewed. The left axilla was interogated and a solitary normal appearing lymph node is visualized. IMPRESSION: BENIGN No left axillary adenopathy. Clinical follow up recommended. There is no sonographic evidence of malignancy. This exam was interpreted at Station ID: [id number]. Electronically Signed By: Lucrecia Montenegro M.D. lk/:01/07/2023 10:56:01 Ultrasound BI-RADS: 2 Benign BI-RADS CATEGORY: (2) - 2 Unspecified - other recall n/a LATERALITY: (B)
== END 2023-01-07 10:04 | disposition home or self-care (01) ==
LOC: DI 10:03
PROVIDERS: ATTEND Internal Medicine
DX: C50.919 Malignant neoplasm of unspecified site of unspecified female breast (principal)

== ENCOUNTER 2023-01-29 14:39 | Emergency (ER) | payer MEDICAID ==
[2023-01-29 14:50] VITALS: BP 142/99
--- NOTE | 2023-01-29 14:56 | ED Physician Documentation ---
PD HPI UPPER EXT INJURY - Stated complaint Stated Complaint: HAND PX - Chief complaint Chief Complaint: Ext Problem - History obtained from History obtained from: Patient - History of Present Illness Location: Right, Wrist, Hand Type of injury: Other (No acute injury but reports repetitive overuse at work) Timing - onset: How many days ago (4-5) Improved by: Nothing Worsened by: Moving, Palpating Associated symptoms: Numbness, Tingling (chronic neuropathy) - Additonal information Additional information: 52-year-old female with a past medical history of breast cancer on Keytruda presented with right hand pain over the last several days. She also noted some mild swelling. No erythema. She states no acute injury but does do a lot of repetitive motion activity at work. She feels soreness in the wrist as well as across the dorsum of the right hand particularly on the ulnar aspect. She does have a history of 5th metacarpal Fracture in the past. She has been using gabapentin that she uses for peripheral neuropathy but states it has not been helping, she has not tried any other pain medicine. She is concerned and would like x-ray today. 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 HEENT: Chronic vision loss Psych: Depression, Anxiety Musculoskeletal: Osteoarthritis Derm: None - Past Surgical History Past Surgical History: Yes General: Other Ortho: Arthroscopic surgery /BEHAVIORAL HEALTH TECH: section - Present Medications Home Medications: Ambulatory Orders Medication Instructions Recorded Confirmed Acetaminophen [Tylenol] 650 mg PO Q6H PRN 10/28/16 01/29/23 Ascorbic Acid [Vitamin C] 500 mg PO DAILY 10/28/16 01/15/23 Multivitamin [Multivitamins] 1 each PO DAILY 10/28/16 01/15/23 Buspirone HCl 30 mg PO BID 10/06/19 01/15/23 DULoxetine [Cymbalta] 60 mg PO BID 02/20/22 01/15/23 Cholecalciferol (Vitamin D3) 50 mcg PO DAILY 02/22/22 01/15/23 [Vitamin D3] Gabapentin [Neurontin] 300 mg PO HS 07/24/22 01/29/23 Alprazolam [Xanax] 0.25 mg PO DAILY PRN 08/04/22 01/29/23 oxyCODONE [Roxicodone] 5 mg PO Q8H PRN 7 Days #21 tablet 08/14/22 01/15/23 - Allergies Allergies/Adverse Reactions: Allergies Allergy/AdvReac Type Severity Reaction Status Date / Time tramadol AdvReac Unknown Verified 01/29/23 15:02 - Social History Does the pt smoke?: Yes Smoking Status: Current every day smoker Does the pt drink ETOH?: Yes Does the pt have substance abuse?: No - Immunizations Immunizations are current?: Yes - POLST Patient has POLST: No PD ED PE NORMAL - Vitals Vital signs reviewed: Yes - General General: Alert and oriented X 3, No acute distress, Well developed/nourished - Derm Derm: Normal color, Warm and dry, No rash - Extremities Extremities: Other (mild right hand swelling w/o erythema. 2+ radial pulses and brisk cap refill. Old deformity from prior fracture or 5th metacarpal no new deformities. able to flex/ext wrist and fingers but notes some pain. ) Results - Vitals Vitals: Vital Signs - 24 hr 01/29/23 14:45 Temperature 36.3 C L Heart Rate 96 Respiratory 16 Rate Blood Pressure 142/99 H O2 Saturation 100 Oxygen O2 Source Room air - Rads (name of study) No standard instances Relevant Findings:: EMP independent interpretation of test PD Medical Decision Making - ED course Complexity details: reviewed results, d/w patient ED course: 52-year-old female presented with right hand pain, atraumatic though does have some repetitive motion activity in her work according to the patient. Physical exam is reassuring, there is maybe trace swelling in the fingers, no other arm swelling, no erythema or signs of infection, no deformities. She has good range of motion of the wrist and fingers. I did obtain x-ray which to my view does not show any acute injuries, she does have A prior fifth metacarpal fracture noted. I advised supportive measures with patient including moist heat, and adding Tylenol or ibuprofen. If ongoing pain, patient to follow-up with PCP. Departure - Departure Disposition: 01 Home, Self Care Clinical Impression: Hand pain, right Condition: Good Instructions: ED Joint Pain Comments: There are no acute findings on your x-ray. You do have evidence of old fracture. You can continue taking the gabapentin, try Tylenol as well and moist heat to help with pain. Follow-up with your primary doctor if no pain relief with these. Discharge Date/Time: 01/29/23 15:48
--- NOTE | 2023-01-29 15:51 | XRAY Report ---
PROCEDURE: Hand 3 View RT INDICATIONS: pain TECHNIQUE: 3 views of the hand(s) acquired. COMPARISON: None. FINDINGS: Bones: No fractures or dislocations. No suspicious bony lesions. Healed fracture of the fifth meta carpal. Soft tissues: No suspicious soft tissue calcifications or masses. IMPRESSION: No acute bony abnormality. Reviewed by: Yosef Wiley on 01/29/2023 2:49 PM AKLINDEN Approved by: Yosef Wiley on 01/29/2023 2:49 PM AKDT Station ID: [id number]
== END 2023-01-29 15:48 | disposition home or self-care (01) ==
LOC: ED 14:39
DX: M79.641 Pain in right hand (principal); R22.31 Localized swelling, mass and lump, right upper limb; M25.531 Pain in right wrist; S62.306D Unspecified fracture of fifth metacarpal bone, right hand, subsequent encounter for fracture with routine healing; X58.XXXD Exposure to other specified factors, subsequent encounter; F17.200 Nicotine dependence, unspecified, uncomplicated

== ENCOUNTER 2023-03-29 23:55 | Outpatient (CLI) | payer MEDICAID | END 2023-03-29 23:59 | disposition short-term general hospital (02) | LOC: EMS 23:55 | PROVIDERS: ATTEND Emergency Medicine | DX: T81.49XA Infection following a procedure, other surgical site, initial encounter (principal) | CPT/HCPCS: A0425; A0426 ==

== ENCOUNTER 2023-04-07 15:30 | Outpatient (CLI) | payer MEDICAID | END 2023-04-07 15:31 | disposition home or self-care (01) | LOC: LAB 15:30 | PROVIDERS: ATTEND Obstetrics & Gynecology | DX: Z78.0 Asymptomatic menopausal state (principal) | CPT/HCPCS: 36415; 83001 ==

== ENCOUNTER 2023-04-12 10:06 | Emergency (ER) | payer MEDICAID ==
[2023-04-12 10:31] VITALS: BP 124/82
--- NOTE | 2023-04-12 11:15 | ED Physician Documentation ---
PD HPI SKIN - Stated complaint Stated Complaint: BODY RASH - Chief complaint Chief Complaint: Wound - History obtained from History obtained from: Patient - History of Present Illness Timing - onset: Today Timing - duration: Hours (awoke with itchy speckled to confluent rash this morning, which has icnreased in density and itchiness through the morning.) Timing - details: Gradual onset, Still present Location: Bodywide Quality / character: Itchy, Discolored (red), Raised (mild raised speckled to confluent areas of rash.). No: Vesicular Associated symptoms: No: Fever, Myalgias, Facial swelling, Dyspnea, N/V/D Contributing factors: Exposed to medication (she had infusion at [facility] 3 days ago wihtout symptoms then and was a repeat infusion she gets every 3 weeks. Had a skin infection as well and was treated with Clndamycin and has been on it for t he past 8 days, with 2 days left in course. 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 HEENT: Chronic vision loss Psych: Depression, Anxiety Musculoskeletal: Osteoarthritis Derm: None - Past Surgical History Past Surgical History: Yes General: Other Ortho: Arthroscopic surgery /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 - Present Medications Home Medications: Ambulatory Orders Medication Instructions Recorded Confirmed Acetaminophen [Tylenol] 650 mg PO Q6H PRN 10/28/16 04/09/23 Ascorbic Acid [Vitamin C] 500 mg PO DAILY 10/28/16 04/09/23 Multivitamin [Multivitamins] 1 each PO DAILY 10/28/16 04/09/23 Buspirone HCl 30 mg PO BID 10/06/19 04/09/23 DULoxetine [Cymbalta] 60 mg PO BID 02/20/22 04/09/23 Cholecalciferol (Vitamin D3) 50 mcg PO DAILY 02/22/22 04/09/23 [Vitamin D3] Gabapentin [Neurontin] 300 mg PO HS 07/24/22 04/09/23 Alprazolam [Xanax] 0.25 mg PO DAILY PRN 08/04/22 04/09/23 Clobetasol 0.05% Oint [Temovate 1 applic TOP Q12H #15 gm 02/05/23 0.05% Oint] Gabapentin [Neurontin] 600 mg PO Q8H PRN 30 Days #180 cap 02/05/23 Cyclobenzaprine [Flexeril] 10 mg PO TID PRN 6 Days #90 tablet 02/26/23 oxyCODONE [Roxicodone] 5 mg PO Q12H PRN #42 tablet 02/26/23 oxyCODONE [Roxicodone] 5 mg PO Q8H PRN 7 Days #21 tablet 02/26/23 dexAMETHasone [Decadron] 4 mg PO DAILY #5 tablet 04/12/23 - Allergies Allergies/Adverse Reactions: Allergies Allergy/AdvReac Type Severity Reaction Status Date / Time adhesive tape Allergy Hives Verified 03/29/23 18:31 tramadol AdvReac Unknown Verified 02/05/23 15:50 - Social History Does the pt smoke?: Yes Smoking Status: Current every day smoker Does the pt drink ETOH?: Yes Does the pt have substance abuse?: No - Immunizations Immunizations are current?: Yes - POLST Patient has POLST: No PD ED PE NORMAL - Vitals Vital signs reviewed: Yes - General General: Alert and oriented X 3, No acute distress, Well developed/nourished - HEENT HEENT: Pharynx benign - Neck Neck: Supple, no meningeal sign, No adenopathy - Cardiac Cardiac: RRR, No murmur - Respiratory Respiratory: No respiratory distress, Clear bilaterally - Derm Derm: Normal color, Warm and dry, Other (bodywide rash that is mostly speckled slightly raised nonvesicular spots but some areas of confluent redness demarcated and slightly raised. C/w hives/drug allergy rash. ) Results - Vitals Vitals: Oxygen O2 Source Room air PD Medical Decision Making - ED course Complexity details: considered differential (has new onset itchy rash. The appearance looks more like a drug allergy spotty hives but could be anything as trigger. She is on day 8 of 10 CLindamycin for skin infection that cleared up well already. This is mostly likely cause. She can just stop it. Consider though her IV infusion instead.), d/w patient, other (she should discuss with her center specialists before getting next IV infusion, though I really think the CLindamycin is the more likely cause of the hives. ) Departure - Departure Disposition: 01 Home, Self Care Clinical Impression: Acute allergic reaction Condition: Stable Record reviewed to determine appropriate education?: Yes Instructions: ED Drug React Allergic Follow-Up: Xochilt Agudelo ARNP [Primary Care Provider] - LISA LEWIS MD [Provider Admit Priv/Credential] - Prescriptions: dexAMETHasone [Decadron] 4 mg PO DAILY #5 tablet Comments: Your skin rash appears to be at drug allergic reaction by the character of it. It could be a delayed response to your infusion on Friday but more likely relates to the current antibiotic you are on. I would stop your clindamycin at this point. Your wounds appear good. Follow-up with Dr. Lewis before the next infusion to discuss any changes or concurrent treatments such as antihistamines etc. Again is less likely to be a reaction to the infusion though. Currently I would have you stop the clindamycin. Continue with your usual Cl aritin and maybe go twice daily for the next few days. Add Benadryl every 6-8 hours if needed for itching or rash. Also add Decadron steroid for the next 5 days to help with the blunt the degree of allergic reaction. I would anticipate improvement over the next couple of days and resolution over 2 to 3 days. I sent your prescription to your preferred pharmacy. Continue your other usual medicines. Forms: PCP List Discharge Date/Time: 04/12/23 12:41
[2023-04-12] MEDS ORDERED: diphenhydrAMINE 25 MG CAPSULE PO STA (11:49)
[2023-04-12] MEDS ORDERED: FAMOTIDINE 20 MG TABLET PO STA (11:49)
[2023-04-12] MEDS ORDERED: dexAMETHasone 4 MG TABLET PO STA (11:49)
== END 2023-04-12 12:41 | disposition home or self-care (01) ==
LOC: ED 10:06
DX: T78.40XA Allergy, unspecified, initial encounter (principal); F17.200 Nicotine dependence, unspecified, uncomplicated
CPT/HCPCS: 99282; 99283; A9270; J8540

== ENCOUNTER 2023-05-20 23:39 | Emergency (ER) | payer MEDICAID ==
[2023-05-21 00:41] VITALS: BP 134/94; O2SAT 97
--- NOTE | 2023-05-21 00:41 | ED Physician Documentation ---
PD HPI CHEST PAIN - Stated complaint Stated Complaint: CHEST PX - Chief complaint Chief Complaint: Trauma Ch/Bk - History obtained from History obtained from: Patient - Additional information Additional information: HPI from patient. Patient complains of sudden onset of midline chest pain yesterday when she was lifting a heavy car battery. The pain has been constant since then, worse with breath and (pleuritic). She denies cough, fever. She denies history of similar chest pain. Patient underwent ELVI flap 03/04/2023, and one of her concerns is whether this pain is related to said procedure. Review of Systems Cardiac: reports: Chest pain / pressure. 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 TECHNICIAN: section - Present Medications Home Medications: Ambulatory Orders Medication Instructions Recorded Confirmed Acetaminophen [Tylenol] 650 mg PO Q6H PRN 10/28/16 05/20/23 Ascorbic Acid [Vitamin C] 500 mg PO DAILY 10/28/16 05/20/23 Multivitamin [Multivitamins] 1 each PO DAILY 10/28/16 05/20/23 Buspirone HCl 30 mg PO BID 10/06/19 05/20/23 DULoxetine [Cymbalta] 60 mg PO BID 02/20/22 05/20/23 Cholecalciferol (Vitamin D3) 50 mcg PO DAILY 02/22/22 05/20/23 [Vitamin D3] Gabapentin [Neurontin] 300 mg PO HS 07/24/22 05/20/23 Alprazolam [Xanax] 0.25 mg PO DAILY PRN 08/04/22 05/20/23 Clobetasol 0.05% Oint [Temovate 1 applic TOP Q12H #15 gm 02/05/23 05/20/23 0.05% Oint] Gabapentin [Neurontin] 600 mg PO Q8H PRN 30 Days #180 cap 02/05/23 05/20/23 oxyCODONE [Roxicodone] 5 mg PO Q8H PRN 7 Days #21 tablet 02/26/23 05/20/23 dexAMETHasone [Decadron] 4 mg PO DAILY #5 tablet 04/12/23 05/20/23 Cyclobenzaprine [Flexeril] 10 mg PO TID PRN 6 Days #90 tablet 05/01/23 oxyCODONE [Roxicodone] 5 mg PO Q12H PRN #42 tablet 05/01/23 - Allergies Allergies/Adverse Reactions: Allergies Allergy/AdvReac Type Severity Reaction Status Date / Time adhesive tape Allergy Hives Verified 03/29/23 18:31 tramadol AdvReac Unknown Verified 02/05/23 15:50 - Social History Does the pt smoke?: Yes Smoking Status: Current every day smoker Does the pt drink ETOH?: Yes Does the pt have substance abuse?: No - Immunizations Immunizations are current?: Yes - POLST Patient has POLST: No PD ED PE NORMAL - Vitals Vital signs reviewed: Yes - General General: Alert and oriented X 3, No acute distress, Well developed/nourished - Cardiac Cardiac: RRR, No murmur - Respiratory Respiratory: No respiratory distress, Clear bilaterally - Abdomen Abdomen: Soft, Non tender - Extremities Extremities: No edema Results - Vitals Vitals: Oxygen O2 Source Room air - EKG (time done) No standard instances EKG releavant findings:: EKG personally interpreted by author of this note. Relevant findings are: Rate: Rate (enter#) (79) Rhythm: NSR Rudy: Normal Intervals: Prolonged KS (borderline) QRS: Normal Ischemia: Normal ST segments - Labs Labs: Laboratory Tests 05/21/23 05/21/23 01:24 01:24 D-Dimer 260.3 H Troponin I High Sens 4.0 - Rads (name of study) chest xray Relevant Findings:: Prelim report reviewed, See rad report PD Medical Decision Making - ED course Complexity details: reviewed old records (reviewed results of outpatient blood tests from 05/20/23 (CBC, ER abdominal panel, TSH, free T4)), reviewed results, re-evaluated patient, considered differential, d/w patient ED course: No concerning findings on yesterday's (outpatient) tests (see above for tests that were performed and which I reviewed); ER abdominal panel glucose 165, representing above-normal range but insignificant regarding her symptoms. Tonight's tests are unremarkable. hs-cTn normal (4.0), d-dimer 260.3 (well below age-adjusted range), and no concerning findings on CXR, EKG. Cause of patient's symptoms is not apparent at this time; given onset with lifting a heavy object, chest wall strain is suspected, increasingly so given tonight's test results. Results d/w patient, return precautions discussed. Prior to discharge, we discussed analgesia; she says she has had inadequate relief of this pain with OTC medications. After discussion of options, she is given a take-home pack of vicodin. Departure - Departure Disposition: 01 Home, Self Care Clinical Impression: Strain of chest wall Qualifiers: Encounter type: initial encounter Qualified Code(s): S29.011A - Strain of muscle and tendon of front wall of thorax, initial encounter Condition: Good Instructions: ED Chest Pain Atypical Unkn Cause Follow-Up: Xochilt Agudelo ARNP [Primary Care Provider] - Comments: There were no concerning nor diagnostic findings on tonight's tests including blood tests, EKG, and chest x-ray. The cause of your pain is not apparent at this time. As we discussed, strain of the muscles of the chest wall is ce rtainly a possibility given that the onset was associated with lifting heavy object. Contact your primary care provider to arrange for follow-up appointment for reevaluation. Forms: PCP List Discharge Date/Time: 05/21/23 02:38
--- NOTE | 2023-05-21 01:49 | XRAY Report ---
PROCEDURE: Chest 2 View X-Ray INDICATIONS: chest pain TECHNIQUE: 2 views of the chest were acquired. COMPARISON: 03/29/2023. FINDINGS: Surgical changes and devices: Right chest wall subclavian Port-A-Cath appears unchanged in position, with the catheter extending into the right atrium. Lungs and pleura: No pleural effusions or pneumothorax. Lungs are clear. Mediastinum: Mediastinal contours appear normal. Heart size is normal. Bones and chest wall: No suspicious bony lesions. Overlying soft tissues appear unremarkable. IMPRESSION: No acute cardiopulmonary disease. Reviewed by: Jarad Panchal MD on 05/21/2023 1:47 AM PDT Approved by: Jarad Panchal MD on 05/21/2023 1:47 AM PDT Station ID: [id number]
[2023-05-21] MEDS ORDERED: HYDROcod/ACET 5/325 Prepack 4 PO STA (02:11)
== END 2023-05-21 02:38 | disposition home or self-care (01) ==
LOC: ED 23:39
DX: S29.011A Strain of muscle and tendon of front wall of thorax, initial encounter (principal); X50.0XXA Overexertion from strenuous movement or load, initial encounter; F17.200 Nicotine dependence, unspecified, uncomplicated
CPT/HCPCS: 36415; 84484; 85379; 93005; 99283; 99284

== ENCOUNTER 2023-11-29 14:54 | Emergency (ER) | payer MEDICAID ==
--- NOTE | 2023-11-29 15:33 | ED Physician Documentation ---
PD HPI ABD PAIN - Stated complaint Stated Complaint: STOMACH PX - Chief complaint Chief Complaint: Abd Pain - History obtained from History obtained from: Patient - History of Present Illness Associated symptoms: No: Fever, Nausea, Vomiting, Diarrhea, Constipation, Melena - Additional information Additional information: Patient is a 53-year-old female who presents to the emergency department with abdominal pain ongoing for the past several months. She states that occurs nearly daily. She states that it "hurts". She is unable to describe the pain any further than that. Nothing really seems to make it better or worse. She does not feel like it is brought on by eating or drinking and does not feel like it changes with that either. She states sometimes it would last for few minutes, sometimes a few hours. No diarrhea. No vomiting, no nausea or fever. Has not seen her doctor for this over the past several months. Has not had any workup performed. Has not taken anything for this at home. She states that she has a history of breast cancer in 2021 and finished chemotherapy "a few months ago". No hematemesis, no hematochezia. No prior abdominal surgeries. 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 HEENT: Chronic vision loss Psych: Depression, Anxiety Musculoskeletal: Osteoarthritis Derm: None - Past Surgical History Past Surgical History: Yes General: Other Ortho: Arthroscopic surgery /EMBEDDED SOFTWARE DEVELOPMENT ENGINEER: section - Present Medications Home Medications: Ambulatory Orders Medication Instructions Recorded Confirmed Acetaminophen [Tylenol] 650 mg PO Q6H PRN 10/28/16 11/29/23 Ascorbic Acid [Vitamin C] 500 mg PO DAILY 10/28/16 11/29/23 Multivitamin [Multivitamins] 1 each PO DAILY 10/28/16 11/29/23 Buspirone HCl 30 mg PO BID 10/06/19 11/29/23 DULoxetine [Cymbalta] 60 mg PO BID 02/20/22 11/29/23 Cholecalciferol (Vitamin D3) 50 mcg PO DAILY 02/22/22 11/29/23 [Vitamin D3] Alprazolam [Xanax] 0.25 mg PO DAILY PRN 08/04/22 11/29/23 Clobetasol 0.05% Oint [Temovate 1 applic TOP Q12H #15 gm 02/05/23 11/29/23 0.05% Oint] Cyclobenzaprine [Flexeril] 10 mg PO TID PRN 30 Days #90 tablet 07/30/23 11/29/23 Famotidine [Pepcid] 20 mg PO BID #60 tablet 11/29/23 Gabapentin [Neurontin] 1,200 mg PO BID 11/29/23 11/29/23 HYDROcod/ACETAM 5/325 [Burnett 5/325] 1 - 2 ea PO Q6H PRN #14 tablet 11/29/23 Sucralfate [Carafate] 1 gm PO ACHS #60 tablet 11/29/23 - Allergies Allergies/Adverse Reactions: Allergies Allergy/AdvReac Type Severity Reaction Status Date / Time adhesive tape Allergy Hives Verified 11/29/23 14:59 tramadol AdvReac Unknown Verified 11/29/23 14:59 - Social History Does the pt smoke?: No Smoking Status: Never smoker Does the pt drink ETOH?: No Does the pt have substance abuse?: No - Immunizations Immunizations are current?: Yes - POLST Patient has POLST: No PD ED PE NORMAL - Vitals Vital signs reviewed: Yes - General General: Alert and oriented X 3, No acute distress - HEENT HEENT: PERRL, Moist mucous membranes - Neck Neck: Supple, no meningeal sign - Cardiac Cardiac: RRR - Respiratory Respiratory: No respiratory distress - Abdomen Abdomen: Soft, Non distended, Other (Tender to palpation epigastric, no peritoneal signs. Equivocal Wilson sign.) - Back Back: No CVA TTP, No spinal TTP - Derm Derm: Warm and dry - Extremities Extremities: No edema, No calf tenderness / cord - Neuro Neuro: Alert and oriented X 3 - Psych Psych: Normal mood, Normal affect Results - Vitals Vitals: Vital Signs - 24 hr 11/29/23 11/29/23 14:59 17:20 Temperature 36.1 C L Heart Rate 115 H 87 Respiratory 16 20 Rate Blood Pressure 142/103 H 128/95 H O2 Saturation 100 95 Oxygen O2 Source Room air - Labs Labs: Laboratory Tests 11/29/23 11/29/23 11/29/23 15:24 15:24 16:25 WBC 9.5 RBC 4.93 Hgb 13.6 Hct 44.8 MCV 90.9 MCH 27.6 MCHC 30.4 L RDW 12.7 Plt Count 295 MPV 8.9 Neut # (Auto) 5.0 Lymph # (Auto) 3.3 [place] # (Auto) 0.7 Eos # (Auto) 0.5 Baso # (Auto) 0.1 Absolute Nucleated RBC 0.00 Nucleated RBC % 0.0 Sodium 139 Potassium 3.5 Chloride 104 Carbon Dioxide 26 Anion Gap 9.0 BUN 10 Creatinine 0.8 Estimated GFR (MDRD) 76 L Glucose 89 Calcium 9.9 Total Bilirubin 0.4 AST 30 ALT 38 Alkaline Phosphatase 88 Total Protein 7.7 Albumin 4.2 Globulin 3.5 Albumin/Globulin Ratio 1.2 Lipase 42 Urine Color YELLOW Urine Clarity CLEAR Urine pH 7.0 Ur Specific [place] <=1.005 Urine Protein NEGATIVE Urine Glucose (UA) NEGATIVE Urine Ketones NEGATIVE Urine Occult Blood NEGATIVE Urine Nitrite NEGATIVE Urine Bilirubin NEGATIVE Urine Urobilinogen 0.2 (NORMAL) Ur Leukocyte Esterase NEGATIVE Ur Microscopic Review NOT INDICATED Urine Culture Comments NOT INDICATED - Rads (name of study) CT abdomen pelvis Relevant Findings:: Final report received, See rad report Right upper quadrant ultrasound Relevant Findings:: Final report received, See rad report PD Medical Decision Making - ED course Complexity details: reviewed results, re-evaluated patient, considered differential, d/w patient ED course: No significant lab abnormalities. No acute findings on CT scan or ultrasound to explain her symptoms. Does feel slightly better after GI cocktail. Also given oxycodone and pain greatly improved. Will prescribe a small amount of pain medication for home as well as Carafate and H2 jenelle. No evidence of cholecystitis, pancreatitis, bowel obstruction, perforation. Recommend that she have an endoscopy and colonoscopy scheduled with her primary care provider. Abdomen is soft, nontender nondistended on serial exam. Pain well-controlled. Patient counseled regarding signs and symptoms for which I believe and urgent re-evaluation would be necessary. Patient with good understanding of and agreement to plan and is comfortable going home at this time This document was made in part using voice recognition software. While efforts are made to proofread this document, sound alike and grammatical errors may occur. Departure - Departure Disposition: 01 Home, Self Care Clinical Impression: Fatty liver Abdominal pain Qualifiers: Abdominal location: epigastric Qualified Code(s): R10.13 - Epigastric pain Condition: Good Instructions: ED Abdominal Pain Female Non-Specific Abdominal Pain Follow-Up: Xochilt Agudelo ARNP [Primary Care Provider] - Within 1 week Prescriptions: Sucralfate [Carafate] 1 gm PO ACHS #60 tablet HYDROcod/ACETAM 5/325 [Burnett 5/325] 1 - 2 ea PO Q6H PRN #14 tablet PRN Reason: Pain Famotidine [Pepcid] 20 mg PO BID #60 tablet Comments: Your prescriptions were sent to [facility] in [place]. Please use the medication as prescribed. Please follow-up with your doctor for further care. It is recommended you be scheduled for an endoscopy to evaluate for possible gastritis versus ulcers. Your doctor may want to schedule you for a colonoscopy as well. Your CT scan and ultrasound do not show any acute abnormalities to day. You do appear to have fatty liver disease on CT scan and this can be followed up and managed with your doctor. I am prescribing a short course of narcotic pain medication for you. These are potentially dangerous and addictive medications that should be used carefully. These medications may constipate you. Take an ccus-odg-akwmxnn stool softener (docusate) twice daily with plenty of water while taking these medications. If you go 24 hours without a bowel movement, take ykao-[id number] miralax, per package instructions. Do not drink or drive while taking these medications. If you received narcotic or sedating medications while in the emergency department, do not drive for 24 hours. Store this medication in a safe, secure place and out of reach of children. It is a violation of federal law to give or sell this medication to another person or to use in a manner other than prescribed. The ED will not refill narcotic prescriptions, including prescriptions lost or stolen. To dispose of unwanted medications: 1. [facility] [address] [facility] [address] in [place] has a medication drop box. They accept prescription medications (in pill form) Friday through Friday 9:00 a.m. to 5:00 p.m. 2. The [facility] [employer] accepts prescription medications (in pill form only) for disposal year round. Call for more information. 3. Contact the [facility] for the next [facility] sponsored prescription drug collection event. , [phone], or [phone]; PROCEDURE: Abdomen/Pelvis W INDICATIONS: epigastric abd pain x 3 months CONTRAST: 100ml omni 300 TECHNIQUE: After the administration of intravenous contrast, a CT scan of the abdomen and pelvis was performed. Images were recorded and evaluated at appropriate window settings. Reformats: coronal and sagittal. For radiation dose reduction, the following was used: automated exposure control, adjustment of mA and/or kV according to patient size. COMPARISON: CT 03/29/2023 FINDINGS: Image quality: Diagnostic. Lower chest: Small hiatal hernia. Liver: Hepatic steatosis without mass identified. Hepatomegaly. Gallbladder and biliary tree: No radiopaque stones or wall thickening. No biliary dilation. Spleen: No splenomegaly. Pancreas: No pancreatic ductal dilation. Adrenals: No adrenal nodule. Kidneys and ureters: No hydronephrosis. No renal cystic lesion which requires follow up. No solid mass. Stomach, bowel and peritoneum: No bowel distension. No pathologic free fluid. Normal appendix. Lymph nodes: No central or retroperitoneal adenopathy. Vessels: No infrarenal aortic aneurysm. PELVIS Reproductive organs: Fibroid uterus. Bladder: No abnormal wall thickening, accounting for underdistention. Pelvic lymph nodes: No pelvic adenopathy by size criteria. Bones: No aggressive osseous abnormality. Other: Small fat-containing umbilical hernia. Mild inflammatory changes along the anterior abdominal wall without rise fluid collection. Small amount of fluid with questionable peripheral enhancement which may represent low-grade sections the right breast measuring 8.8 x 1.2 cm. IMPRESSION: No acute findings within the abdomen or pelvis. Slight edema along the anterior abdominal wall likely postsurgical changes. Fluid collection beneath the right breast may represent seroma/ lymphocele versus small abscess, recommend clinical correlation. Forms: PCP List
[2023-11-29 15:38] LABS: BASOPHILS # (AUTO) 0.1 10^3/uL (0.0-0.1); BASOPHILS % (AUTO) 0.6 %; EOSINOPHILS # (AUTO) 0.5 10^3/uL (0.0-0.7); EOSINOPHILS % (AUTO) 5.3 %; HCT - HEMATOCRIT 44.8 % (37.0-47.0); HGB - HEMOGLOBIN 13.6 g/dL (12.0-16.0); LYMPHOCYTES # (AUTO) 3.3 10^3/uL (1.5-3.5); LYMPHOCYTES % (AUTO) 34.5 %; MEAN CORPUSCULAR HEMOGLOBIN 27.6 pg (27.0-31.0); MEAN CORPUSCULAR HGB CONC 30.4 g/dL (32.0-36.0); MEAN CORPUSCULAR VOLUME 90.9 fL (81.0-99.0); MEAN PLATELET VOLUME 8.9 fL (7.9-10.8); MONOCYTES # (AUTO) 0.7 10^3/uL (0.0-1.0); MONOCYTES % (AUTO) 7.2 %; NEUTROPHILS % (AUTO) 52.2 %; PLT - PLATELET COUNT 295 10^3/uL (130-450); RED BLOOD COUNT 4.93 10^6/uL (4.20-5.40); RED CELL DISTRIBUTION WIDTH 12.7 % (12.0-15.0); WHITE BLOOD COUNT 9.5 x10^3/uL (4.8-10.8)
[2023-11-29] MEDS: LIDOCAINE VISCOUS 2% 15 ML ORAL SYRINGE MM STA (15:52)
[2023-11-29] MEDS: FAMOTIDINE 20 MG TABLET PO STA (15:52)
[2023-11-29] MEDS: MAG HYDROX/AL HYDROX/SIMETH 30 ML UDC PO STA (15:52)
[2023-11-29] MEDS: SUCRALFATE 1 GM/10 ML UDC PO STA (15:52)
[2023-11-29 15:59] LABS: ALBUMIN 4.2 g/dL (3.2-5.5); ALBUMIN/GLOBULIN RATIO 1.2 (1.0-2.2); BILIRUBIN,TOTAL 0.4 mg/dL (0.2-1.0); CALCIUM 9.9 mg/dL (8.5-10.3); CREATININE 0.8 mg/dL (0.6-1.3); POTASSIUM 3.5 mmol/L (3.5-4.5); TOTAL PROTEIN 7.7 g/dL (6.4-8.9)
[2023-11-29] MEDS ORDERED: iohexoL-300 100 ML VIAL ONE (16:03)
[2023-11-29 16:34] LABS: BILIRUBIN,URINE NEGATIVE (NEGATIVE); GLUCOSE, URINE (UA) NEGATIVE (NEGATIVE); KETONES,URINE (UA) NEGATIVE (NEGATIVE); LEUKOCYTE ESTERASE, URINE NEGATIVE (NEGATIVE); NITRITE,URINE NEGATIVE (NEGATIVE); OCCULT BLOOD,URINE NEGATIVE (NEGATIVE); PROTEIN,URINE NEGATIVE (NEGATIVE); UROBILINOGEN,URINE 0.2 (NORMAL) E.U./dL (NORMAL)
[2023-11-29] MEDS: iohexoL-300 100 ML VIAL IVP ONE (16:34)
[2023-11-29 16:35] LABS: CLARITY,URINE CLEAR (CLEAR)
--- NOTE | 2023-11-29 16:54 | CT Report ---
PROCEDURE: Abdomen/Pelvis W INDICATIONS: epigastric abd pain x 3 months CONTRAST: 100ml omni 300 TECHNIQUE: After the administration of intravenous contrast, a CT scan of the abdomen and pelvis was performed. Images were recorded and evaluated at appropriate window settings. Reformats: coronal and sagittal. F or radiation dose reduction, the following was used: automated exposure control, adjustment of mA and /or kV according to patient size. COMPARISON: CT 03/29/2023 FINDINGS: Image quality: Diagnostic. Lower chest: Small hiatal hernia. Liver: Hepatic steatosis without mass identified. Hepatomegaly. Gallbladder and biliary tree: No radiopaque stones or wall thickening. No biliary dilation. Spleen: No splenomegaly. Pancreas: No pancreatic ductal dilation. Adrenals: No adrenal nodule. Kidneys and ureters: No hydronephrosis. No renal cystic lesion which requires follow up. No solid mas s. Stomach, bowel and peritoneum: No bowel distension. No pathologic free fluid. Normal appendix. Lymph nodes: No central or retroperitoneal adenopathy. Vessels: No infrarenal aortic aneurysm. PELVIS Reproductive organs: Fibroid uterus. Bladder: No abnormal wall thickening, accounting for underdistention. Pelvic lymph nodes: No pelvic adenopathy by size criteria. Bones: No aggressive osseous abnormality. Other: Small fat-containing umbilical hernia. Mild inflammatory changes along the anterior abdominal wall without rise fluid collection. Small amount of fluid with questionable peripheral enhancement wh ich may represent low-grade sections the right breast measuring 8.8 x 1.2 cm. IMPRESSION: No acute findings within the abdomen or pelvis. Slight edema along the anterior abdominal wall likely postsurgical changes. Fluid collection beneath the right breast may represent seroma/ lymphocele versus small abscess, sukhwinder mmend clinical correlation. Reviewed by: Terry Marino MD on 11/29/2023 3:52 PM MALIK Approved by: Terry Marino MD on 11/29/2023 3:52 PM FLLINDEN Station ID: [id number]
[2023-11-29] MEDS: oxyCODONE 5 MG TABLET PO STA (17:13)
--- NOTE | 2023-11-29 17:41 | Ultrasound Report ---
PROCEDURE: Abdomen Limited INDICATIONS: RUQ abd pain TECHNIQUE: Real-time focused scanning was performed of the abdomen, with image documentation. COMPARISONS: None. FINDINGS: Liver: Increased liver echogenicity, commonly mild hepatic steatosis. Gallbladder: Unremarkable. Biliary ducts: Intrahepatic bile ducts are non-dilated. Extrahepatic bile duct caliber measures 5 m m. Normal is 6-7 mm or less in diameter, or 10 mm or less post-cholecystectomy. Pancreas: Not well visualized due to overlying bowel gas. Right kidney: Obscured by body habitus Aorta: Not seen IVC: Not seen Miscellaneous: No free abdominal fluid. IMPRESSION: Normal appearance of the gallbladder and biliary ducts. Pancreas, kidneys, and abdominal structures are obscured by bowel gas and patient habitus. Reviewed by: Terry Marino MD on 11/29/2023 4:40 PM MALIK Approved by: Terry Marino MD on 11/29/2023 4:40 PM AKLINDEN Station ID: [id number]
[2023-11-29 17:49] VITALS: BP 134/94; O2SAT 98
== END 2023-11-29 18:00 | disposition home or self-care (01) ==
LOC: ED 14:54
DX: R10.13 Epigastric pain (principal); K76.0 Fatty (change of) liver, not elsewhere classified
CPT/HCPCS: 36415; 74177; 76705; 80053; 81003; 83690; 85025; 99284; A9270; Q9967; 81001; 87086

== ENCOUNTER 2023-12-30 10:18 | Day surgery (SDC) | payer MEDICAID ==
[2023-12-30] MEDS: LACTATED RINGERS 1,000 ML IV ONE ×2 (10:35→12:13)
--- NOTE | 2023-12-30 11:16 | ANESTHESIA ---
Pre-Anesthesia VS, & Labs - Diagnosis GERD, abdominal pain - Procedure EGD, colonoscopy Vital Signs: Temp Pulse Resp BP Pulse Ox O2 Flow Rate 36.4 C L 92 18 119/94 H 94 12/30/23 10:35 12/30/23 10:35 12/30/23 10:35 12/30/23 10:35 12/30/23 10:35 Height: 5 ft 7.5 in Weight (kg): 105.8 kg Body Mass Index: 35.9 BMI Classification: Obese - NPO >8 hours - Is Patient ?: Not Applicable Home Medications and Allergies Home Medications: Ambulatory Orders Levothyroxine Sodium 137 mcg PO DAILY 12/25/23 Buspirone HCl 30 mg PO BID 10/06/19 DULoxetine [Cymbalta] 60 mg PO BID 02/20/22 Alprazolam [Xanax] 0.25 mg PO DAILY PRN 08/04/22 Gabapentin [Neurontin] 900 mg PO Q8HR 11/29/23 Levothyroxine Sodium 137 mcg PO DAILY 12/25/23 Allergies/Adverse Reactions: Allergies Allergy/AdvReac Type Severity Reaction Status Date / Time adhesive tape Allergy Hives Verified 11/29/23 14:59 tramadol AdvReac Unknown Verified 11/29/23 14:59 Anes History & Medical History - Anesthetic History Anesthesia Complications: reports: No previous complications Family history of Anesthesia Complications: Denies Family history of Malignant Hyperthermia: Denies - Medical History Cardiovascular: reports: None Pulmonary: reports: None Gastrointestinal: reports: None Urinary: reports: None Neuro: reports: Peripheral neuropathy, Other Musculoskeletal: reports: Osteoarthritis, Chronic back pain Endocrine/Autoimmune: reports: HyPOthyroidism Blood Disorders: reports: None Skin: reports: None Smoking Status: Never smoker - Surgical History General: reports: Other Gynecologic: reports: section, Mastectomy Orthopedic: reports: Arthroscopic surgery Exam General: Alert, Oriented x3, Cooperative Dental: WNL Mouth Openin Fingerbreadth Neck Mobility: Normal Mallampati classification: II Thyromental Distance: 4-6 cm Respiratory: Lungs clear Cardiovascular: Regular rate Plan Anesthesia Type: General, Total IV Consent for Procedure(s) Verified and Reviewed: Yes Code Status: Attempt Resuscitation ASA classification: 2-Mild systemic disease Is this case an emergency?: No
[2023-12-30] MEDS ORDERED: fentaNYL 100 MCG/2 ML VIAL ONE (11:44)
[2023-12-30] MEDS ORDERED: MIDAZOLAM 2 MG/2 ML VIAL ONE (11:44)
[2023-12-30] MEDS ORDERED: PROPOFOL 500 MG/50 ML 500 MG/50 ML VIAL ONE (12:03)
[2023-12-30] MEDS ORDERED: PROPOFOL 200 MG/20 ML VIAL IVP ONE (12:03)
[2023-12-30 12:22] VITALS: O2SAT 100
--- NOTE | 2023-12-30 12:29 | ANESTHESIA POST OP EVALUATION ---
Anesthesia Post Eval - Post Anesthesia Eval Vitals: Last Vital Signs Temp 36.0 C L 12/30/23 12:13 Pulse 98 12/30/23 12:13 Resp 18 12/30/23 12:13 BP 118/96 H 12/30/23 12:13 Pulse Ox 100 12/30/23 12:13 O2 Flow Rate CV Function Including HR & BP: Stable Pain Control: Satisfactory Nausea & Vomiting: Negative Mental Status: Baseline Respiratory Status: Airway Patent Hydration Status: Satisfactory Anesthesia Complications: None
[2023-12-30 12:51] VITALS: BP 131/87
== END 2023-12-30 10:19 | disposition home or self-care (01) ==
LOC: SDS 10:18
PROVIDERS: ATTEND Surgery
PROC: 0DB68ZX Excision of Stomach, Via Natural or Artificial Opening Endoscopic, Diagnostic (ICD-10-PCS; principal; 2023-12-30 11:45)
DX: Z12.11 Encounter for screening for malignant neoplasm of colon (principal); R10.11 Right upper quadrant pain; R10.13 Epigastric pain; K21.9 Gastro-esophageal reflux disease without esophagitis; E66.9 Obesity, unspecified; Z68.35 Body mass index [BMI] 35.0-35.9, adult
CPT/HCPCS: 43239; 45378; J7120

== ENCOUNTER 2024-02-17 16:37 | Emergency (ER) | payer BC, MEDICAID ==
--- NOTE | 2024-02-17 17:49 | XRAY Report ---
PROCEDURE: Chest 1V INDICATIONS: Chest pain TECHNIQUE: One view of the chest was acquired. COMPARISON: 05/21/2023. FINDINGS: Surgical changes and devices: Surgical clips projecting over the chest wall.. Lungs and pleura: No pleural effusions or pneumothorax. Lungs are clear. Mediastinum: Mediastinal contours appear normal. Heart size is normal. Bones and chest wall: No suspicious bony lesions. Overlying soft tissues appear unremarkable. IMPRESSION: No acute cardiopulmonary process. Reviewed by: Aj Cohen MD on 02/17/2024 5:48 PM PDT Approved by: Aj Cohen MD on 02/17/2024 5:48 PM PDT Station ID: [id number]
[2024-02-17 18:17] LABS: BASOPHILS # (AUTO) 0.1 10^3/uL (0.0-0.1); BASOPHILS % (AUTO) 0.6 %; EOSINOPHILS # (AUTO) 0.3 10^3/uL (0.0-0.7); EOSINOPHILS % (AUTO) 3.4 %; HCT - HEMATOCRIT 49.1 % (37.0-47.0); HGB - HEMOGLOBIN 14.9 g/dL (12.0-16.0); LYMPHOCYTES # (AUTO) 3.5 10^3/uL (1.5-3.5); LYMPHOCYTES % (AUTO) 44.6 %; MEAN CORPUSCULAR HEMOGLOBIN 27.4 pg (27.0-31.0); MEAN CORPUSCULAR HGB CONC 30.3 g/dL (32.0-36.0); MEAN CORPUSCULAR VOLUME 90.4 fL (81.0-99.0); MEAN PLATELET VOLUME 9.6 fL (7.9-10.8); MONOCYTES # (AUTO) 0.5 10^3/uL (0.0-1.0); MONOCYTES % (AUTO) 6.4 %; NEUTROPHILS # (AUTO) 3.5 10^3/uL (1.5-6.6); NEUTROPHILS % (AUTO) 44.9 %; PLT - PLATELET COUNT 250 10^3/uL (130-450); RED BLOOD COUNT 5.43 10^6/uL (4.20-5.40); RED CELL DISTRIBUTION WIDTH 13.9 % (12.0-15.0); WHITE BLOOD COUNT 7.9 x10^3/uL (4.8-10.8)
[2024-02-17 18:35] LABS: ALBUMIN 4.4 g/dL (3.2-5.5); ALBUMIN/GLOBULIN RATIO 1.8 (1.0-2.2); BILIRUBIN,TOTAL 0.3 mg/dL (0.2-1.0); CALCIUM 9.4 mg/dL (8.5-10.3); CREATININE 0.8 mg/dL (0.6-1.3); POTASSIUM 3.8 mmol/L (3.5-4.5); TOTAL PROTEIN 6.9 g/dL (6.4-8.9)
[2024-02-17 18:38] LABS: TROPONIN I HIGH SENSITIVITY 3.3 ng/L (2.3-14.8)
--- NOTE | 2024-02-17 18:56 | ED Physician Documentation ---
History of Present Illness - Stated complaint Stated Complaint: LT ARM NUMBMESS - Chief complaint Chief Complaint: Neuro - History obtained from History obtained from: Patient - Additonal information Additional information: 53-year-old female presents referred from the walk-in clinic for left forearm tingling and elevated blood pressure readings. Patient states that she has been very stressed at work and today while she was very stressed out she began to feel "not right" which she describes as even more anxious than usual. She checked her blood pressure and it was 160 systolic. She went to the walk-in clinic and when she told them of her left forearm pain they referred her to the ER for cardiac workup. Patient denies chest pain, shortness of breath, leg swelling, other complaints. The left forearm tingling resolved prior to arrival. Patient reports history of heart problems in her father, but does not know what his diagnosis was.Patient does not take any medications for hypertension at home Review of Systems Constitutional: denies: Fever, Chills Cardiac: denies: Chest pain / pressure, Palpitations, Calf pain Respiratory: denies: Dyspnea, Cough, Wheezing GI: denies: Abdominal Pain, Nausea, Vomiting, Constipation, Diarrhea Neurologic: denies: Generalized weakness, Focal weakness, Numbness Psychiatric: reports: Anxiety. 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 PULLER: section - Present Medications Home Medications: Ambulatory Orders Medication Instructions Recorded Confirmed Buspirone HCl 30 mg PO BID 10/06/19 12/31/23 DULoxetine [Cymbalta] 60 mg PO BID 02/20/22 12/31/23 Alprazolam [Xanax] 0.25 mg PO DAILY PRN 08/04/22 12/31/23 Cyclobenzaprine [Flexeril] 10 mg PO TID PRN 30 Days #90 tablet 07/30/23 12/31/23 Famotidine [Pepcid] 20 mg PO BID #60 tablet 11/29/23 12/31/23 Gabapentin [Neurontin] 900 mg PO Q8HR 11/29/23 12/31/23 Levothyroxine Sodium 137 mcg PO DAILY 12/25/23 12/31/23 Cyclobenzaprine [Flexeril] 10 mg PO TID PRN 30 Days #90 tablet 12/31/23 amLODIPine [Norvasc] 5 mg PO DAILY #30 tablet 02/17/24 - Allergies Allergies/Adverse Reactions: Allergies Allergy/AdvReac Type Severity Reaction Status Date / Time adhesive tape Allergy Hives Verified 02/17/24 16:42 tramadol AdvReac Unknown Verified 02/17/24 16:42 - Social History Does the pt smoke?: No Smoking Status: Never smoker Does the pt drink ETOH?: No Does the pt have substance abuse?: No - Immunizations Immunizations are current?: Yes - POLST Patient has POLST: No PD ED PE NORMAL - Vitals Vital signs reviewed: Yes - General General: Alert and oriented X 3, No acute distress, Well developed/nourished - Cardiac Cardiac: RRR, Strong equal pulses - Respiratory Respiratory: No respiratory distress, Clear bilaterally - Abdomen Abdomen: Soft, Non tender, Non distended - Derm Derm: Normal color, Warm and dry, No rash - Neuro Neuro: Alert and oriented X 3, butcherette 2-12 intact, No motor deficit, Normal speech Results - Vitals Vitals: Vital Signs - 24 hr 02/17/24 02/17/24 02/17/24 16:42 16:50 18:50 Temperature 35.9 C L Heart Rate 103 H 76 70 Respiratory 18 18 16 Rate Blood Pressure 139/101 H 124/96 H 128/92 H O2 Saturation 100 100 100 02/17/24 19:36 Temperature Heart Rate 78 Respiratory 16 Rate Blood Pressure 145/95 H O2 Saturation 98 Oxygen O2 Source Room air - Labs Labs: Laboratory Tests 02/17/24 02/17/24 18:11 18:11 WBC 7.9 RBC 5.43 H Hgb 14.9 Hct 49.1 H MCV 90.4 MCH 27.4 MCHC 30.3 L RDW 13.9 Plt Count 250 MPV 9.6 Neut # (Auto) 3.5 Lymph # (Auto) 3.5 [place] # (Auto) 0.5 Eos # (Auto) 0.3 Baso # (Auto) 0.1 Absolute Nucleated RBC 0.00 Nucleated RBC % 0.0 Sodium 139 Potassium 3.8 Chloride 105 Carbon Dioxide 25 Anion Gap 9.0 BUN 12 Creatinine 0.8 Estimated GFR (MDRD) 76 L Glucose 78 Calcium 9.4 Total Bilirubin 0.3 AST 31 ALT 34 Alkaline Phosphatase 87 Troponin I High Sens 3.3 Total Protein 6.9 Albumin 4.4 Globulin 2.5 Albumin/Globulin Ratio 1.8 Lipase 72 PD Medical Decision Making - ED course Complexity details: reviewed results, re-evaluated patient, considered differential, d/w patient ED course: Hypertension and anxiety at work with left forearm tingling. Asymptomatic at this time. Patient already takes Xanax for anxiety, which is prescribed by her primary care doctor. EKG normal sinus rhythm. Laboratory work negative for signs of cardiac strain. Chest x-ray negative for acute findings. Extremely low suspicion for ACS at this time. Patient started on low-dose blood pressure medication and counseled to keep a diary that she should bring to a primary care doctor follow-up appointment. Patient also advised to talk to her doctor about adjustment to her anxiety medication. Departure - Departure Disposition: 01 Home, Self Care Clinical Impression: Hypertension, Anxiety Condition: Stable Instructions: Hypertension Dc Prescriptions: amLODIPine [Norvasc] 5 mg PO DAILY #30 tablet Comments: Your laboratory work, EKG, and chest x-ray were normal today. If you would like you may start a low-dose blood pressure medication called amlodipine. I recommend taking a blood pressure diary measuring once in the morning and once at night. Bring this log to your primary doctor for further medication adjustments if needed. RX sent to [facility] Forms: PCP List Discharge Date/Time: 02/17/24 19:40
[2024-02-17 19:41] VITALS: BP 145/95; O2SAT 98
== END 2024-02-17 19:40 | disposition home or self-care (01) ==
LOC: ED 16:37
DX: I10 Essential (primary) hypertension (principal); F41.9 Anxiety disorder, unspecified; G62.9 Polyneuropathy, unspecified; Z79.899 Other long term (current) drug therapy; Z85.3 Personal history of malignant neoplasm of breast
CPT/HCPCS: 36415; 80053; 83690; 84484; 85025; 93005; 99283; 99284

== ENCOUNTER 2024-02-21 16:03 | Emergency (ER) | payer BC, MEDICAID ==
[2024-02-21] MEDS: HYDROcod/ACETAM 5/325 MG TABLET PO STA (16:54)
--- NOTE | 2024-02-21 17:03 | XRAY Report ---
PROCEDURE: Hand 3+V RT INDICATIONS: Trauma TECHNIQUE: 3 views of the hand(s) acquired. COMPARISON: 01/29/2023, 06/10/2019 FINDINGS: Bones: There is a subacute to remote fracture seen involving the mid shaft of the fifth metacarpal. No jerald acute fractures can be seen. No suspicious bony lesions. Soft tissues: Generalized soft tissue swelling is seen. IMPRESSION: Remote seen involving the fifth metacarpal, which is unchanged compared to the prior plain film. No acute fracture identified on these plain films. Generalized soft tissue swelling. Reviewed by: Abel Boyd MD on 02/21/2024 4:01 PM MALIK Approved by: Abel Boyd MD on 02/21/2024 4:01 PM MALIK Station ID: [id number]
--- NOTE | 2024-02-21 17:28 | ED Physician Documentation ---
History of Present Illness - Stated complaint Stated Complaint: SWOLLEN RT HAND - Chief complaint Chief Complaint: Trauma Ext - History obtained from History obtained from: Patient - History of Present Illness Timing: Yesterday Pain level max: 7 Pain level now: 7 - Additonal information Additional information: 53-year-old female presents to the emergency department with a right hand pain after hitting a wall while gardening yesterday. Has pain and swelling to the hand. Worse with movement, better with rest. Has had a fracture in that hand before and wants to make sure it is not broken. 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 HEENT: Chronic vision loss Psych: Depression, Anxiety Musculoskeletal: Osteoarthritis Derm: None - Past Surgical History Past Surgical History: Yes General: Other Ortho: Arthroscopic surgery /MINISTER ASSISTANT: section - Present Medications Home Medications: Ambulatory Orders Medication Instructions Recorded Confirmed Buspirone HCl 30 mg PO BID 10/06/19 02/21/24 DULoxetine [Cymbalta] 60 mg PO BID 02/20/22 02/21/24 Alprazolam [Xanax] 0.25 mg PO DAILY PRN 08/04/22 02/21/24 Gabapentin [Neurontin] 900 mg PO Q8HR 11/29/23 02/21/24 Levothyroxine Sodium 137 mcg PO DAILY 12/25/23 02/21/24 Cyclobenzaprine [Flexeril] 10 mg PO TID PRN 30 Days #90 tablet 12/31/23 02/21/24 amLODIPine [Norvasc] 5 mg PO DAILY #30 tablet 02/17/24 02/21/24 HYDROcod/ACETAM 5/325 [[place] 5/325] 1 - 2 ea PO Q6H PRN #10 tablet 02/21/24 - Allergies Allergies/Adverse Reactions: Allergies Allergy/AdvReac Type Severity Reaction Status Date / Time adhesive tape Allergy Hives Verified 02/21/24 16:04 tramadol AdvReac Unknown Verified 02/21/24 16:04 - Social History Does the pt smoke?: No Smoking Status: Never smoker Does the pt drink ETOH?: No Does the pt have substance abuse?: No - Immunizations Immunizations are current?: Yes - POLST Patient has POLST: No PD ED PE NORMAL - Vitals Vital signs reviewed: Yes - General General: Alert and oriented X 3, No acute distress - HEENT HEENT: Moist mucous membranes - Extremities Extremities: Other (Tender to palpation over the dorsum of the right hand diffusely. No deformity. Neurovascular intact.) - Neuro Neuro: Alert and oriented X 3 - Psych Psych: Normal mood, Normal affect Results - Vitals Vitals: Vital Signs - 24 hr 02/21/24 02/21/24 16:04 17:41 Temperature 36.8 C Heart Rate 100 90 Respiratory 16 16 Rate Blood Pressure 140/100 H 118/86 H O2 Saturation 100 99 Oxygen O2 Source Room air - Rads (name of study) Right hand x-ray Relevant Findings:: Final report received, See rad report PD Medical Decision Making - ED course Complexity details: reviewed results, considered differential, d/w patient ED course: 53-year-old female with contusion of the right hand. No acute findings on x- ray. Placed in a Velcro splint for comfort. Pain well-controlled with a dose of Vicodin here. Will prescribe pain medication for home. Counseled to follow- up with her PCP in 1 week if her pain is not improved. No snuffbox tenderness. No evidence of scaphoid fracture. Patient counseled regarding signs and symptoms for which I believe and urgent re-evaluation would be necessary. Patient with good understanding of and agreement to plan and is comfortable going home at this time This document was made in part using voice recognition software. While efforts are made to proofread this document, sound alike and grammatical errors may occur. Departure - Departure Disposition: 01 Home, Self Care Clinical Impression: Contusion, hand Qualifiers: Encounter type: initial encounter Laterality: right Qualified Code(s): S60.221A - Contusion of right hand, initial encounter Condition: Good Instructions: ED Contusion Hand Follow-Up: your,doctor in 1 week [Other] Prescriptions: HYDROcod/ACETAM 5/325 [[place] 5/325] 1 - 2 ea PO Q6H PRN #10 tablet PRN Reason: Pain Comments: Your x-ray does not show any acute fractures today. Your prescription was sent to [facility] in [place]. You can wear the splint as needed for comfort. Please follow-up with your doctor if you are still having pain in 1 week. I am prescribing a short course of narcotic pain medication for you. These are potentially dangerous and addictive medications that should be used carefully. These medications may constipate you. Take an ubbx-vzr-ldhfkqs stool softener (docusate) twice daily with plenty of water while taking these medications. If you go 24 hours without a bowel movement, take fyzk-yay-hqulbzr miralax, per package instructions. Do not drink or drive while taking these medications. If you received narcotic or sedating medications while in the emergency department, do not drive for 24 hours. Store this medication in a safe, secure place and out of reach of children. It is a violation of federal law to give or sell this medication to another person or to use in a manner other than prescribed. The ED will not refill narcotic prescriptions, including prescriptions lost or stolen. To dispose of unwanted medications: 1. [facility] at [address] in [place] has a medication drop box. They accept prescription medications (in pill form) Friday through Friday 9:00 a.m. to 5:00 p.m. 2. [facility] [employer] accepts prescription medications (in pill form only) for disposal year round. Call for more information. 3. Contact the [facility] for the next [facility] sponsored prescription drug collection event. , [phone], or [phone]; Forms: PCP List Discharge Date/Time: 02/21/24 17:51
[2024-02-21 17:45] VITALS: BP 118/86; O2SAT 99
== END 2024-02-21 17:51 | disposition home or self-care (01) ==
LOC: ED 16:03
DX: S60.221A Contusion of right hand, initial encounter (principal); W22.01XA Walked into wall, initial encounter; Y93.H2 Activity, gardening and landscaping
CPT/HCPCS: 73130; 99283; 99284; A9270

== ENCOUNTER 2024-03-05 14:30 | Outpatient (CLI) | payer BC, MEDICAID ==
--- NOTE | 2024-03-06 16:43 | XRAY Report ---
PROCEDURE: Thoracic Spine 2V INDICATIONS: THORACIC BACK PAIN. History of malignancy. TECHNIQUE: 2 views of the thoracic spine were acquired. COMPARISON: Chest radiograph on February 17, 2024. FINDINGS: Bones: No definite fracture or suspicious osseous lesion. Amorphous calcification which projects over aortic arch and in the lung similar to prior. 12 pairs of ribs are noted, and appear intact where vi sualized. Multilevel anterior osteophytosis and disc height loss. Soft tissues: No paravertebral stripe thickening. Scattered surgical clips in the chest wall. Diffu se interstitial prominence, likely secondary to low lung volumes. IMPRESSION: 1.No definite fracture or suspicious osseous lesion. If clinical symptoms persist, recommend cross-se ctional imaging for further evaluation. 2.Amorphic calcification which projects over the aortic arch on AP view and in the lung on lateral vi ew similar to multiple priors. Findings could represent a calcified granuloma. 3.Mild multilevel degenerative changes of the spine. Reviewed by: Vic Page MD on 03/06/2024 4:42 PM PDT Approved by: Vic Page MD on 03/06/2024 4:42 PM PDT Station ID: [id number]
--- NOTE | 2024-03-06 16:46 | XRAY Report ---
PROCEDURE: Lumbar Spine 2-3V INDICATIONS: LOW BACK PAIN, ACUTE. History of malignancy. TECHNIQUE: 3 views of the lumbar spine were acquired. COMPARISON: CT abdomen and pelvis on January 22, 2023. FINDINGS: Surgical change: None. Bones: 5 lud-ubp-psoyvtt vertebrae are present. Grade 1 anterolisthesis of L4 on L5. Hmjt-ol-jnavjfq e facet arthropathy, notably at L3-L4, L4-L5 and L5-S1. Moderate osseous neural foraminal narrowing a t L4-L5 and L5-S1. Mild multilevel anterior osteophytosis and disc height loss. No vertebral body com pression fractures. No suspicious bony lesions. Soft tissues: Overlying bowel gas pattern is normal. No suspicious soft tissue calcifications. Darion cification of the aorta. Scattered surgical clips. Above-average colonic stool burden. IMPRESSION: 1.No acute fracture or suspicious osseous lesion. If clinical symptoms persist, recommend cross-secti onal imaging for further evaluation. 2.Olad-kb-kslhoehx multilevel degenerative changes of the spine. 3.Above-average colonic stool burden suggestive of constipation. Reviewed by: Vic Page MD on 03/06/2024 4:45 PM PDT Approved by: Vic Page MD on 03/06/2024 4:45 PM PDT Station ID: [id number]
--- NOTE | 2024-03-06 16:49 | XRAY Report ---
PROCEDURE: Hips w/Pelvis 2-3V BL INDICATIONS: PAIN IN RIGHT HIP TECHNIQUE: 3 view(s) of the hip were acquired. COMPARISON: CT abdomen and pelvis on February 27, 2023. FINDINGS: Bones: No fractures or dislocations. Mild bilateral femoroacetabular joint space narrowing and juxt a-articular osteophytosis. No suspicious bony lesions. The visualized pelvic ring appears intact. Soft tissues: No suspicious soft tissue calcifications or masses. Scattered surgical clips. IMPRESSION: 1.No acute bony abnormality. If there remains a high clinical concern for fracture, consider cross-se ctional imaging now. If pain persists, consider repeat x-ray in 10-14 days or cross-sectional imaging . 2.Mild bilateral hip osteoarthritis. Reviewed by: Vic Page MD on 03/06/2024 4:47 PM PDT Approved by: Vic Page MD on 03/06/2024 4:47 PM PDT Station ID: [id number]
== END 2024-03-05 14:45 | disposition home or self-care (01) ==
LOC: DI.N 14:30
PROVIDERS: ATTEND Family Medicine
DX: M47.814 Spondylosis without myelopathy or radiculopathy, thoracic region (principal); M47.816 Spondylosis without myelopathy or radiculopathy, lumbar region; M47.817 Spondylosis without myelopathy or radiculopathy, lumbosacral region; M48.061 Spinal stenosis, lumbar region without neurogenic claudication; M48.07 Spinal stenosis, lumbosacral region; M43.16 Spondylolisthesis, lumbar region; M16.0 Bilateral primary osteoarthritis of hip; C50.912 Malignant neoplasm of unspecified site of left female breast

== ENCOUNTER 2024-03-16 19:00 | Emergency (ER) | payer BC, MEDICAID ==
[2024-03-16 19:57] LABS: BASOPHILS # (AUTO) 0.1 10^3/uL (0.0-0.1); BASOPHILS % (AUTO) 0.6 %; EOSINOPHILS # (AUTO) 0.3 10^3/uL (0.0-0.7); EOSINOPHILS % (AUTO) 2.1 %; HCT - HEMATOCRIT 43.7 % (37.0-47.0); HGB - HEMOGLOBIN 13.9 g/dL (12.0-16.0); LYMPHOCYTES # (AUTO) 4.2 10^3/uL (1.5-3.5); LYMPHOCYTES % (AUTO) 34.4 %; MEAN CORPUSCULAR HEMOGLOBIN 28.3 pg (27.0-31.0); MEAN CORPUSCULAR HGB CONC 31.8 g/dL (32.0-36.0); MEAN CORPUSCULAR VOLUME 88.8 fL (81.0-99.0); MEAN PLATELET VOLUME 9.7 fL (7.9-10.8); MONOCYTES # (AUTO) 0.6 10^3/uL (0.0-1.0); MONOCYTES % (AUTO) 4.6 %; NEUTROPHILS # (AUTO) 7.1 10^3/uL (1.5-6.6); NEUTROPHILS % (AUTO) 58.1 %; PLT - PLATELET COUNT 300 10^3/uL (130-450); RED BLOOD COUNT 4.92 10^6/uL (4.20-5.40); RED CELL DISTRIBUTION WIDTH 14.7 % (12.0-15.0); WHITE BLOOD COUNT 12.2 x10^3/uL (4.8-10.8)
[2024-03-16 20:06] LABS: ALBUMIN 4.7 g/dL (3.2-5.5); ALBUMIN/GLOBULIN RATIO 1.3 (1.0-2.2); BILIRUBIN,TOTAL 0.6 mg/dL (0.2-1.0); CALCIUM 9.9 mg/dL (8.5-10.3); CREATININE 1.3 mg/dL (0.6-1.3); POTASSIUM 3.2 mmol/L (3.5-4.5); TOTAL PROTEIN 8.4 g/dL (6.4-8.9)
[2024-03-16] MEDS: POTASSIUM CHLORIDE 20 MEQ TABLET PO STA (21:00)
[2024-03-16 21:13] LABS: BILIRUBIN,URINE NEGATIVE (NEGATIVE); GLUCOSE, URINE (UA) NEGATIVE (NEGATIVE); KETONES,URINE (UA) TRACE mg/dL (NEGATIVE); LEUKOCYTE ESTERASE, URINE NEGATIVE (NEGATIVE); NITRITE,URINE NEGATIVE (NEGATIVE); OCCULT BLOOD,URINE NEGATIVE (NEGATIVE); PROTEIN,URINE TRACE mg/dL (NEGATIVE); UROBILINOGEN,URINE 0.2 (NORMAL) E.U./dL (NORMAL)
[2024-03-16 21:15] LABS: CLARITY,URINE CLEAR (CLEAR)
--- NOTE | 2024-03-16 21:31 | ED Physician Documentation ---
History of Present Illness - Stated complaint Stated Complaint: - Chief complaint Chief Complaint: Abd Pain - Additonal information Additional information: 53-year-old female with history of hypertension, peripheral neuropathy, GERD, breast cancer, chronic back pain, depression, anxiety, osteoarthritis presents emergency department for mild lower abdominal pain discomfort chronic lower back pain has known radiculopathy and new bright red per rectum with constipation. Patient is working with physical therapy on her lower back or lower back pain does not feel any worse than it normally does she has been taking Tylenol ibuprofen for this pain and discomfort. She says that when she is been having bowel movements she feels like she is unable to fully pass the stool feels like it comes out and then partially comes back in. No recent fevers or chills no recent falls no trauma. 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 HEENT: Chronic vision loss Psych: Depression, Anxiety Musculoskeletal: Osteoarthritis Derm: None - Past Surgical History Past Surgical History: Yes General: Other Ortho: Arthroscopic surgery /SCHOOL ATHLETIC DIRECTOR: section - Present Medications Home Medications: Ambulatory Orders Medication Instructions Recorded Confirmed Buspirone HCl 30 mg PO BID 10/06/19 03/17/24 DULoxetine [Cymbalta] 60 mg PO BID 02/20/22 03/17/24 Alprazolam [Xanax] 0.25 mg PO DAILY PRN 08/04/22 03/17/24 Gabapentin [Neurontin] 900 mg PO Q8HR 11/29/23 03/17/24 Levothyroxine Sodium 137 mcg PO DAILY 12/25/23 03/17/24 Cyclobenzaprine [Flexeril] 10 mg PO TID PRN 30 Days #90 tablet 12/31/23 02/21/24 amLODIPine [Norvasc] 5 mg PO DAILY #30 tablet 02/17/24 02/21/24 HYDROcod/ACETAM 5/325 [[place] 5/325] 1 - 2 ea PO Q6H PRN #10 tablet 02/21/24 Nitroglycerin 1 applic RC BID 30 Days #30 gm 03/17/24 - Allergies Allergies/Adverse Reactions: Allergies Allergy/AdvReac Type Severity Reaction Status Date / Time adhesive tape Allergy Hives Verified 03/16/24 19:18 tramadol AdvReac Unknown Verified 03/16/24 19:18 - Social History Does the pt smoke?: No Smoking Status: Never smoker Does the pt drink ETOH?: No Does the pt have substance abuse?: No - Immunizations Immunizations are current?: Yes - POLST Patient has POLST: No PD ED PE NORMAL - Vitals Vital signs reviewed: Yes - General General: Alert and oriented X 3, No acute distress, Well developed/nourished - Abdomen Abdomen: Normal bowel sounds, Soft, Non tender, Non distended, No organomegaly - Back Back: No CVA TTP - Derm Derm: Normal color, Warm and dry, No rash - Extremities Extremities: No edema, No calf tenderness / cord - Neuro Neuro: Alert and oriented X 3, 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 Curvature of the cervical, thoracic, and lumbar spine are within normal limits. Bony features of the shoulders and hips are of equal height bilaterally. Posture is upright, gait is smooth, steady, and within normal limits. No tenderness noted on palpation of the spinous processes. Spinous processes are midline. Cervical, thoracic, and lumbar paraspinal muscles are not tender and are without spasm. No discomfort is noted with flexion, extension, and ijme-fs-ccqu rotation of the cervical spine, full range of motion is noted. Full range of motion including flexion, extension, and jkfo-tr-kuax rotation of the thoracic and lumbar spine are noted and without discomfort. Straight leg raise test is negative bilaterally. Sensation to the upper and lower extremities is normal bilaterally. No clonus is noted. Administrative Judge strength is normal bilaterally. Dorsi/plantar flexion is normal bilaterally. PD ED PE EXPANDED - Rectal Rectal: Normal Tone, Chief Media Officer present (GABRIELA De Souza). No: Hemorrhoid Results - Vitals Vitals: Oxygen O2 Source Room air - Labs Labs: Laboratory Tests 03/16/24 03/16/24 03/16/24 19:47 19:47 21:00 WBC 12.2 H RBC 4.92 Hgb 13.9 Hct 43.7 MCV 88.8 MCH 28.3 MCHC 31.8 L RDW 14.7 Plt Count 300 MPV 9.7 Neut # (Auto) 7.1 H Lymph # (Auto) 4.2 H [place] # (Auto) 0.6 Eos # (Auto) 0.3 Baso # (Auto) 0.1 Absolute Nucleated RBC 0.00 Nucleated RBC % 0.0 Sodium 138 Potassium 3.2 L Chloride 102 Carbon Dioxide 25 Anion Gap 11.0 BUN 12 Creatinine 1.3 Estimated GFR (MDRD) 43 L Glucose 111 H Calcium 9.9 Total Bilirubin 0.6 AST 44 H ALT 45 Alkaline Phosphatase 86 Total Protein 8.4 Albumin 4.7 Globulin 3.7 Albumin/Globulin Ratio 1.3 Lipase 36 Urine Color YELLOW Urine Clarity CLEAR Urine pH 6.0 Ur Specific [place] >=1.030 H Urine Protein TRACE Urine Glucose (UA) NEGATIVE Urine Ketones TRACE Urine Occult Blood NEGATIVE Urine Nitrite NEGATIVE Urine Bilirubin NEGATIVE Urine Urobilinogen 0.2 (NORMAL) Ur Leukocyte Esterase NEGATIVE Ur Microscopic Review NOT INDICATED Urine Culture Comments NOT INDICATED PD Medical Decision Making - ED course ED course: 53-year-old female comes in with multiple complaints. Labs are complete for further evaluation she has mild leukocytosis, 12.2 mild hypokalemia 3.240 mEq of oral potassium was given to patient for replenishment. BUN/creatinine normal GFR slightly suppressed at 43 Patient voiding without any difficulty urinalysis does not reveal any leukocytes or nitrites. Patient is told to follow-up with primary care provider to have her labs reevaluated. Rectal exam was complete for further evaluation and no hemorrhoids or masses or obvious fissures were visualized although she could still have some internal fissures. Patient has chronic lower back pain she is able to ambulate with any difficulty and this feels normal to the patient does not feel any worse or more acute than normal. No CVA tenderness. At this point in time there is no further work up indicated she has close follow up with PCP and strict ER return precautions. Departure - Departure Disposition: 01 Home, Self Care Clinical Impression: Hypokalemia, Constipation Instructions: ED Constipation Comments: Thank you for trusting us with your care. We have completed labs and we are not seeing any acute abnormalities or findings. Your potassium is a little bit on the low side and given you potassium here in the emergency department make sure going home you are drinking plenty of fluids. You should be drinking half your body weight in ounces. I would strongly encourage you to add things like MiraLAX or Metamucil or both to your daily regimen to help with having more consistent bowel movements. You likely have an anal fissure there is nothing to do about that except for making sure that your bowel movements are very soft and regular. Please follow-up with your primary care provider about today's ER visit and about your ongoing lower back pain. Please come back to the ER if you are starting develop any fevers or chills urinary or stool incontinence or inability to walk. Forms: PCP List Discharge Date/Time: 03/16/24 21:52
[2024-03-16 21:52] VITALS: BP 106/82; O2SAT 98
== END 2024-03-16 21:52 | disposition home or self-care (01) ==
LOC: ED 19:00
DX: K59.00 Constipation, unspecified (principal); E87.6 Hypokalemia; I10 Essential (primary) hypertension; K21.9 Gastro-esophageal reflux disease without esophagitis; F41.9 Anxiety disorder, unspecified; F32.A Depression, unspecified; Z85.3 Personal history of malignant neoplasm of breast
CPT/HCPCS: 36415; 80053; 81003; 83690; 85025; 99283; A9270; 81001; 87086

== ENCOUNTER 2024-05-19 11:47 | Outpatient (CLI) | payer BC, MEDICAID ==
[2024-05-19 12:26] LABS: THYROID STIMULATING HORMONE 3.28 uIU/mL (0.34-5.60)
[2024-05-19 19:49] LABS: ESTIMATED AVERAGE GLUCOSE 120 mg/dL (70-100); HEMOGLOBIN A1c% 5.8 % (4.27-6.07)
== END 2024-05-19 11:48 | disposition home or self-care (01) ==
LOC: LAB 11:47
PROVIDERS: ATTEND Nurse Practitioner
DX: G60.9 Hereditary and idiopathic neuropathy, unspecified (principal); E03.9 Hypothyroidism, unspecified; R73.9 Hyperglycemia, unspecified
CPT/HCPCS: 36415; 82607; 83036; 84439; 84443